=== PATIENT | female | born 1990 | race Caucasian/White ===

== ENCOUNTER 2017-08-28 00:30 | Outpatient (CLI) | payer BC ==
[2017-08-28 01:19] LABS: APPEARANCE,URINE SLIGHTLY-CLOUDY; BILIRUBIN,URINE NEGATIVE (NEGATIVE); GLUCOSE, URINE NEGATIVE (NEGATIVE); KETONES,URINE NEGATIVE (NEGATIVE); LEUKOCYTE ESTERASE,URINE NEGATIVE (NEGATIVE); NITRITE,URINE NEGATIVE (NEGATIVE); PROTEIN,URINE 30 mg/dL (NEGATIVE); URINE SPECIFIC GRAVITY 1.027
[2017-08-28 01:25] LABS: COLOR,URINE YELLOW
[2017-08-28 02:21] LABS: URINE AMPHETAMINES SCREEN NEGATIVE; URINE BARBITURATES SCREEN NEGATIVE; URINE BENZODIAZEPINES SCREEN NEGATIVE; URINE COCAINE SCREEN NEGATIVE; URINE MARIJUANA (THC) SCREEN NEGATIVE; URINE METHADONE SCREEN NEGATIVE; URINE PHENCYCLIDINE SCREEN NEGATIVE
--- NOTE | 2017-08-28 02:40 | Non Stress Test Report ---
Non Stress Test Datetime Report Generated by CPN: 08/28/2017 02:40 DEMOGRAPHIC EGA NST: 33.4 INDICATION Indication for Study: Ordered by Provider; Other Indication for Study (NST) Other: LC URINE RESULTS Urine Protein, NST: Positive Urine Ketones - NST: Negative Urine Glucose - NST: Negative Urine Blood - NST: Positive MONITORING Monitor Explained: Monitor Explained; Test Explained; Patient Verbalized Understanding Time on Monitor: 08/28/2017 01:10 Time off Monitor: 08/28/2017 02:10 NST Duration: 60 NST INTERVENTIONS NST Interventions: Reposition Patient BABY A: [id number] BABY A Movement : Present Contraction Frequency : none FHR Baseline : 140 Accelerations : 15X15 Decelerations : None Variability : Moderate 6-25bpm NST Review: Meets Criteria for Reactive NST NST Review and Verified By : lisa cain rn NST Results: Reactive NST REPORT Report Trigger: Send Report
== END 2017-08-28 02:22 | disposition home or self-care (01) ==
LOC: LC 00:30
PROVIDERS: ATTEND Obstetrics & Gynecology
PROC: 4A1HXCZ Monitoring of Products of Conception, Cardiac Rate, External Approach (ICD-10-PCS; principal; 2017-08-28)
DX: Z34.93 Encounter for supervision of normal pregnancy, unspecified, third trimester (principal)
CPT/HCPCS: 59025; 80307; 81005; 87086

== ENCOUNTER 2017-10-01 16:26 | Outpatient (CLI) | payer BC ==
--- NOTE | 2017-10-01 17:40 | Non Stress Test Report ---
Non Stress Test Datetime Report Generated by CPN: 10/01/2017 17:40 DEMOGRAPHIC EGA NST: 38.3 INDICATION Indication for Study: Decreased Movement VITAL SIGNS Temperature - NST: 98.2 RESP - NST: 16 MONITORING Monitor Explained: Monitor Explained; Test Explained Time on Monitor: 10/01/2017 16:28 Time off Monitor: 10/01/2017 17:38 NST Duration: 70 NST INTERVENTIONS NST Interventions: PO Hydration; Reposition Patient Physician Notified NST: Dr Francis BABY A: [id number] BABY A Movement : Present Contraction Frequency : irreg FHR Baseline : 130 Accelerations : 15X15 Decelerations : None Variability : Moderate 6-25bpm NST Review: Meets Criteria for Reactive NST NST Review and Verified By : Willa Roach [facility] NST Results: Reactive NST REPORT Report Trigger: Send Report
== END 2017-10-01 17:41 | disposition home or self-care (01) ==
LOC: LC 16:26
PROVIDERS: ATTEND Obstetrics & Gynecology
PROC: 4A1HXCZ Monitoring of Products of Conception, Cardiac Rate, External Approach (ICD-10-PCS; principal; 2017-10-01)
DX: O36.8130 Decreased fetal movements, third trimester, not applicable or unspecified (principal); Z3A.38 38 weeks gestation of pregnancy
CPT/HCPCS: 59025

== ENCOUNTER 2017-10-10 18:22 | Inpatient (IN) | payer BC ==
[2017-10-10 19:38] LABS: APPEARANCE,URINE CLOUDY; BILIRUBIN,URINE NEGATIVE (NEGATIVE); COLOR,URINE YELLOW; GLUCOSE, URINE 150 mg/dL (NEGATIVE); KETONES,URINE TRACE mg/dL (NEGATIVE); LEUKOCYTE ESTERASE,URINE TRACE (NEGATIVE); NITRITE,URINE NEGATIVE (NEGATIVE); PROTEIN,URINE 30 mg/dL (NEGATIVE); URINE SPECIFIC GRAVITY 1.027; UROBILINOGEN,URINE NEGATIVE mg/dL (<2.0)
[2017-10-10 19:55] LABS: URINE AMPHETAMINES SCREEN NEGATIVE; URINE BARBITURATES SCREEN NEGATIVE; URINE BENZODIAZEPINES SCREEN NEGATIVE; URINE COCAINE SCREEN NEGATIVE; URINE MARIJUANA (THC) SCREEN NEGATIVE; URINE METHADONE SCREEN NEGATIVE; URINE PHENCYCLIDINE SCREEN NEGATIVE
[2017-10-10] MEDS ORDERED: RINGERS SOLUTION,LACTATED 1,000 ML IV PRN (20:10)
[2017-10-10] MEDS ORDERED: RINGERS SOLUTION,LACTATED 1,000 ML IV ONE (20:10)
[2017-10-10 20:28] LABS: ABSOLUTE BASOPHILS # (AUTO) 0.1 10^3/uL (0.0-0.2); ABSOLUTE EOSINOPHILS # (AUTO) 0.1 10^3/uL (0.0-0.6); ABSOLUTE LYMPHOCYTES (AUTO) 2.9 10^3/uL (0.5-4.7); ABSOLUTE NEUT (AUTO) 9.8 10^3/uL (1.7-8.2); BASOPHILS % (AUTO) 0.4 % (0-2); EOSINOPHILS % (AUTO) 0.8 % (0-6); HEMATOCRIT 38.9 % (36.0-47.0); HEMOGLOBIN 13.4 g/dL (12.0-15.5); LYMPHOCYTES % (AUTO) 21.2 % (13-45); MEAN CORPUSCULAR HEMOGLOBIN 31.2 pg (27.0-33.4); MEAN CORPUSCULAR HGB CONC 34.4 g/dL (32.0-36.0); MEAN CORPUSCULAR VOLUME 91 fl (80-97); PLATELET COUNT 238 10^3/uL (150-450); RED BLOOD COUNT 4.29 10^6/uL (3.72-5.28); RED CELL DISTRIBUTION WIDTH 15.3 % (11.5-14.0); SEGMENTED NEUTROPHILS % (AUTO) 70.6 % (42-78); TOTAL CELLS COUNTED % (AUTO) 100 %; WHITE BLOOD COUNT 13.8 10^3/uL (4.0-10.5)
[2017-10-10] MEDS ORDERED: DINOPROSTONE 10 MG VAGINAL INSERT.SR ONE (21:27)
[2017-10-10] MEDS: DINOPROSTONE 10 MG VAGINAL INSERT.SR PV PRN (21:48)
--- NOTE | 2017-10-10 22:35 | Admission Physical ---
Datetime Report Generated by CPN: 10/10/2017 22:35 CURRENT ADMISSION Chief Complaint: Suspected Ruptured Membranes Indication for Induction: Not Applicable Admit Impression : Term, Intrauterine Admit Plan: Initiate Labor Protocol ALLERGIES Medication Allergies: No Medication Allergies: No Known Allergies (10/10/2017) Latex: No Latex Allergies OBSTETRICAL HISTORY EDC: 10/12/2017 00:00 : 2 Para: 0 Term: 0 : 0 SAB: 1 IAB: 0 Ectopic: 0 Livin Cesareans: 0 VBACs: 0 Multiple Births: 0 Gestational Diabetes: No Rh Sensitization: No Incompetent Cervix: No SEBASTIAN: No Infertility: No ART Treatment: No Uterine Anomaly: No IUGR: No Hx Previous C/S: No Macrosomia: No Hx Loss/Stillborn: No PIH: No Hx : No Placenta Previa/Abruption: No Depression/PP Depression: No PTL/PROM: No Post Hemorrhage: No Current Procedures: Ultrasound Obstetrical History Comments: G1: 2009 SAB unk gestational age G2: Current, placenta anterior per u/s SEE RECORDS Alcohol: No Marijuana : No Cocaine: No Other Illicit Drugs: No Cigarettes: Former Smoker. [id number] MEDICAL HISTORY Diabetes: No Blood Transfusion: No Pulmonary Disease (Asthma, TB): No Breast Disease: No Hypertension: No Pbx Manager Surgery: No Heart Disease: No Hosp/Surgery: No Autoimmune Disorder: No Anesthetic Complications: No Kidney Disease: Yes Abnormal Pap Smear: No Neuro/Epilepsy: No Psychiatric Disorders: Yes Other Medical Diseases: No Hepatitis/Liver Disease: No Significant Family History: No Varicosities/Phlebitis: No Trauma/Violence : No Thyroid Dysfunction: No Medical History Comments: tubal ovarian abcess 2016; UTI , ADD INFECTIOUS HISTORY Gonorrhea: No Genital Herpes: No Chlamydia: No Tuberculosis: No Syphilis: No Hepatitis: No HIV/AIDS Exposure: No Rash or Viral Illness: No HPV: No PHYSICAL EXAM General: Normal HEENT: Normal Neurologic: Normal Thyroid: Normal Heart: Normal Lungs: Normal Breast: Deferred Back: Normal Abdomen: Normal Genitourinary Exam: Normal Extremities: Normal DTRs: Normal Pelvic Type: Adequate FETUS A EGA: 39.5 Monitoring: External US PLANS FOR LABOR AND DELIVERY Labor and Delivery: None Pain Management: Epidural Feeding Preference: Breast Benefit of Breast Feed Discussed: Yes Circumcision: N/A INFORMED CONSENT Signature: with User ID: [email or web address]
[2017-10-11] MEDS: DINOPROSTONE 10 MG VAGINAL INSERT.SR PV PRN (07:23)
[2017-10-11] MEDS ORDERED: LIDOCAINE 1% INJ-PF (10 MG/ML) 30 ML SDV INJ PRN (07:59)
[2017-10-11] MEDS ORDERED: MISOPROSTOL 0.2 MG TABLET PR PRN (07:59)
[2017-10-11] MEDS ORDERED: OXYTOCIN/NORMAL SALINE 20 UNIT/1,000 ML RTUINJ IV PRN ×2 (07:59→12:13)
[2017-10-11] MEDS ORDERED: PROMETHAZINE HCL INJ 25 MG/1 ML VIAL ONE (10:20)
[2017-10-11] MEDS ORDERED: PROMETHAZINE HCL INJ 25 MG/1 ML VIAL IV PRN ×2 (10:20→12:13)
[2017-10-11] MEDS ORDERED: BUPIVACAINE HCL 0.25 % INJ/PF (2.5 MG/1 ML) 30 ML VIAL ONE (11:14)
[2017-10-11] MEDS ORDERED: EPHEDRINE SULFATE INJ 50 MG/1 ML AMPULE ONE (11:14)
[2017-10-11] MEDS ORDERED: FENTANYL/BUPIVACAINE/NS/PF 300 MCG/150 ML RTUINJ EPI ONE (11:14)
[2017-10-11] MEDS ORDERED: PSEUDOEPHEDRINE HCL 30 MG TABLET PO PRN (12:13)
[2017-10-11] MEDS ORDERED: PROMETHAZINE HCL 25 MG SUPP.RECT PR PRN (12:13)
[2017-10-11] MEDS ORDERED: NA PHOS,M-B/NA PHOS,DI-BA (ADULT) 133 ML ENEMA PR PRN (12:13)
[2017-10-11] MEDS ORDERED: DIPHENHYDRAMINE HCL 25 MG CAPSULE PO PRN (12:13)
[2017-10-11] MEDS ORDERED: DIPH/PERTUSS(ACELL)/TETANUS VAC/PF 0.5 ML SYR (>=10YO) IM PRN (12:13)
[2017-10-11] MEDS ORDERED: BENZOCAINE/MENTHOL AEROSOL SPRAY 56 ML TOP PRN (12:13)
[2017-10-11] MEDS ORDERED: GLYCERIN/WITCH HAZEL LEAF 1 EACH MED..PAD TP PRN (12:13)
[2017-10-11] MEDS ORDERED: MAGNESIUM HYDROXIDE SUSP 30 ML UDCUP PO PRN (12:13)
[2017-10-11] MEDS ORDERED: MEASLES,MUMPS&RUBELLA VACC/PF 0.5 ML VIAL SUBCUT PRN (12:13)
[2017-10-11] MEDS ORDERED: HYDROCODONE/ACETAMINOPHEN 5-325 MG TABLET PO PRN (12:13)
[2017-10-11] MEDS ORDERED: ACETAMINOPHEN WITH CODEINE #3 TABLET PO PRN (12:13)
[2017-10-11] MEDS ORDERED: ZOLPIDEM TARTRATE 5 MG TABLET PO PRN (12:13)
[2017-10-11] MEDS ORDERED: PROMETHAZINE HCL 25 MG TABLET PO PRN (12:13)
[2017-10-11] MEDS ORDERED: ACETAMINOPHEN 650 MG SUPP.RECT PR PRN (12:13)
[2017-10-11] MEDS ORDERED: LIDOCAINE 1% INJ-PF (10 MG/ML) 30 ML SDV ONE (12:15)
[2017-10-11] MEDS ORDERED: MISOPROSTOL 0.2 MG TABLET ONE (12:15)
[2017-10-11] MEDS ORDERED: OXYTOCIN/NORMAL SALINE 20 UNIT/1,000 ML RTUINJ ONE (12:15)
--- NOTE | 2017-10-11 13:36 | L&D Progress Notes ---
PROGRESS NOTES Datetime Report Generated by CPN: 10/11/2017 13:35 PROGRESS NOTE Impression: Normal Progression of Labor Informed Consent Obtained: Vaginal Delivery Comment: prolonged decelerations - placed on mehrdad maneuver with resuscitation, then placed back supine. pushed without difficulty. 2nd degree and bilateral periurethral tears. viable female . apgars 7 and 9. awaiting wait. skin to skin. SIGNATURE SIGNATURE: [id number];[id number];[id number] SIGNATURE: [id number];[id number] SIGNATURE: [id number] SIGNATURE: [id number] Signature: with User ID: [email or web address]
--- NOTE | 2017-10-11 13:41 | PDOC DELIVERY SUMMARY ---
Delivery Summary - Maternal Hx : II Hx Para: 0 Hx # Term Pregnancies: 0 Hx # Pregnancies: 0 Hx Total # of Abortions (Sponateous & Elective): 1 Number of Living Children: 0 FRANKIE: 10/12/17 Gestational Age: 39.6 Risk Factors: Premature Rupture Membrane, Other - PREMATURE RUPTURE OF MEMBRANES 10/10/17 Risk Factors/Complications Other:: NONE Ruptured Membranes: SROM Time of Rupture: 16:30 - 10/10/17 Fluids: Clear Fluid Description: CLEAR NORMAL APPEARING FLUID - Delivery Labor: Induction Presentation: Vertex Heart Rate Monitoring: Externally Uterine Contraction Monitoring: External Pattern: Prolonged Decels - PROLONGED DECELERATION LASTING ABOUT 5-6 MINUTES, VARIABLE DECELERATIONS DEEP TO 60S AT TIME OF FULL DILATION AND PUSHING. PLACED IN MALIK MANEUVER - RESUSCITATED AND THEN PLACED BACK IN SUPINE POSITIONING, Variable Decels Support Person Present: Yes Location: LD Placenta: Within Normal Limits Placenta Description: TRUE KNOT X 1 NOTED Number of Vessels (Cord): 3 Nuchal Cord: No Delivery of Placenta Date: 10/11/17 Delivery of Placenta Time: 13:22 Estimated Blood Loss: SEE NURSING NOTE - PENDING AT THIS TIME - Medications Type of Anesthesia:: Epidural - Delivery Medications Delivery Meds: Other-Document - PITOCIN AFTER PLACENTA - Infant Assess and Care Baby 1 Female Delivery of Infant Date: 10/11/17 Delivery of Infant Time: 13:19 at 1 minute: 7 at 5 minutes: 9 Skin to Skin: Yes Skin to Skin (Mins): 1 - SEE NURSING NOTES
[2017-10-11 13:57] LABS: ARTERIAL BLOOD BASE EXCESS -13.2 mmol/L; ARTERIAL BLOOD H2CO3 2.94 mmol/L (1.05-1.35)
[2017-10-11 14:00] LABS: ARTERIAL BLOOD PCO2 97.8 mmHg (35-45); ARTERIAL BLOOD PH 6.97 (7.35-7.45)
[2017-10-11] MEDS: IBUPROFEN 800 MG TABLET PO SCH ×2 (14:00→21:57)
[2017-10-11 14:01] LABS: ARTERIAL BLOOD PO2 17.8 mmHg (80-100)
--- NOTE | 2017-10-11 14:33 | Delivery Summary ---
Del Sum A-C Datetime Report Generated by CPN: 10/11/2017 14:33 DELIVERY PERSONNEL DELIVERY PERSONNEL: [id number] Delivery Doctor:: Elizabeth Lopez MD Labor and Delivery Nurse:: Lorena Alcantara RNequipment maintenance technician Nurse:: Taylor Froylan, RN Training Engineer/RESIDENTIAL RECYCLE DRIVER: Velma Madrigal, ST MATERNAL INFORMATION Delivery Anesthesia: Epidural Medications After Delivery: Pitocin Bolus-Please Comment Maternal Complications: Premature Rupture of Membranes LABOR SUMMARY EDC: 10/12/2017 00:00 No. Babies in Womb: 1 Attempted: No Labor Anesthesia: Epidural LABOR INFORMATION Reason for Induction: Premature Rupture of Membranes Onset of Labor: 10/11/2017 03:10 Complete Dilatation: 10/11/2017 12:11 Cervical Ripening Agents: Cervidil Oxytocin: Induction Group B Beta Strep: Negative Antibiotics # of Doses: N/A Antibiotics Time of Last Dose: N/A Steroids Given: None Reason Steroids Not Administered: Not Applicable MEMBRANES Membranes Rupture Method: Spontaneous Rupture of Membranes: 10/10/2017 16:30 Length of Rupture (hr): 20.82 Amniotic Fluid Color: Clear Amniotic Fluid Amount: Small Amniotic Fluid Odor: Normal STAGES OF LABOR Stage 1 hr: 9 Stage 1 min: 1 Stage 2 hr: 1 Stage 2 min: 8 Stage 3 hr: 0 Stage 3 min: 3 Total Time in Labor hr: 10 Total Time in Labor min: 12 VAGINAL DELIVERY Episiotomy: None Laceration #1: Periurethral Laceration Extension #1: First Degree Laceration #2: Perineal Laceration Extension #2: Second Degree Laceration #3: None Laceration Repair: Yes Laceration Repair Note: hemostatic bilateral periurethral tears - no repair performed 2nd degree perineal tear- 3-[address]-1 continous stitch Sponge Count Correct: Yes; Vaginal Sweep Performed Sharps Count Correct: Yes CSECTION DELIVERY Primary Indication: N/A Secondary Indication: N/A CSection Urgency: N/A CSection Incidence: N/A Labor: N/A Elective: N/A CSection Incision: N/A BABY A INFORMATION Delivery Date/Time: 10/11/2017 13:19 Method of Delivery: Vaginal Born in Route : No : N/A Forceps: N/A Vacuum Extraction: N/A Shoulder Dystocia : No PRESENTATION/POSITION BABY A Presentation: Cephalic Cephalic Presentation: Vertex Vertex Position: Right Occipital Anterior Breech Presentation: N/A PLACENTA INFORMATION BABY A Placenta Delivery Time : 10/11/2017 13:22 Placenta Method of Delivery: Spontaneous Placenta Status: Delivered SCORES BABY A Heart Rate 1 min: >100 bpm Resp Effort 1 min: Good Cry Reflex Irritability 1 min: Cough or Sneeze or Pulls Away Muscle Tone 1 min: Flaccid Color 1 min: Body Wal[place], Extremities Blue Resuscitation Effort 1 min: Tactile Stimulation SCORE 1 MIN: 7 Heart Rate 5 min: >100 bpm Resp Effort 5 min: Good Cry Reflex Irritability 5 min: Cough or Sneeze or Pulls Away Muscle Tone 5 min: Active Motion Color 5 min: Body Walnut, Extremities Blue Resuscitation Effort 5 min: Tactile Stimulation SCORE 5 MIN: 9 INFORMATION BABY A Gestational Age at Delivery: 39.6 Gestational Status: Full Term- 39- 40.6 Weeks Infant Outcome : Liveborn Condition : Stable Sex: Female IDENTIFICATION BABY A Verification Date/Time: 10/11/2017 13:46 ID Band Number: [id number] Mother's Name Verified: Yes RN Verifying Infant: Cassandra Galeano RN Additional Verifying Personnel: Josh Jung RN WEIGHT/LENGTH BABY A Infant Birthweight (gm): 3030 Infant Weight (lb): 6 Weight (oz): 11 Infant Length (in): 20.50 Infant Length (cm): 52.07 CORD INFORMATION BABY A No. Cord Vessels: 3 Nuchal Cord : N/A True Knot: 1 Cord Blood Taken: Yes-For Eval (Mom's Blood Type - or O+) Infant Suction: None ASSESSMENT BABY A Complications: Multiple Variable Decels Physical Findings at Delivery: Within Normal Limits; Molding of the Head Respirations: Appears Normal Skin to Skin: Yes Skin to Skin Time (min): 60 Satellite Specialist/ALS Called : No Infant Care By: A. Froylan RN BABY B INFORMATION : N/A SIGNATURES Signature: Electronically signed by Elizabeth Lopez MD ([facility] [place]) on 10/11/2017 at 13:36 with User ID: [email or web address]
[2017-10-11] MEDS: FERROUS SULFATE 325 MG TABLET PO SCH (17:10)
[2017-10-11] MEDS: DOCUSATE SODIUM 100 MG CAPSULE PO SCH (17:10)
[2017-10-11] MEDS: ACETAMINOPHEN WITH CODEINE #3 TABLET PO PRN (18:42)
[2017-10-11] MEDS: DIBUCAINE 1% OINTMENT 28 GM TP PRN (18:43)
[2017-10-11] MEDS: FAMOTIDINE 20 MG TABLET PO SCH (21:56)
[2017-10-12] MEDS: IBUPROFEN 800 MG TABLET PO SCH ×3 (05:00→21:21)
[2017-10-12 07:12] LABS: HEMATOCRIT 31.7 % (36.0-47.0); MEAN CORPUSCULAR HEMOGLOBIN 31.4 pg (27.0-33.4); MEAN CORPUSCULAR HGB CONC 34.4 g/dL (32.0-36.0); MEAN CORPUSCULAR VOLUME 91 fl (80-97); PLATELET COUNT 176 10^3/uL (150-450); RED BLOOD COUNT 3.47 10^6/uL (3.72-5.28); RED CELL DISTRIBUTION WIDTH 15.2 % (11.5-14.0); WHITE BLOOD COUNT 13.5 10^3/uL (4.0-10.5)
[2017-10-12 07:22] LABS: HEMOGLOBIN 10.9 g/dL (12.0-15.5)
[2017-10-12] MEDS ORDERED: (PENDING PHARMACY ID) (Prenatal Vit/Iron Fum/Folic Ac [Prenatal Tablet] 1 TAB) PO SCH (10:00)
[2017-10-12] MEDS: PRENATAL VITAMIN W DHA CAPSULE PO SCH (10:17)
[2017-10-12] MEDS: SENNOSIDES/DOCUSATE 8.6-50 MG 1 EACH TABLET PO SCH (10:17)
[2017-10-12] MEDS: DOCUSATE SODIUM 100 MG CAPSULE PO SCH ×2 (10:18→17:31)
[2017-10-12] MEDS: FAMOTIDINE 20 MG TABLET PO SCH ×2 (10:18→21:21)
[2017-10-12] MEDS: FERROUS SULFATE 325 MG TABLET PO SCH ×2 (10:18→17:31)
--- NOTE | 2017-10-12 11:07 | PDOC PROGRESS REPORT ---
Subjective-OB Progress Note for:: 10/12/17 Subjective: Pt doing well, no concern. She reports light bleeding, reg diet and voiding without difficulty. Physical Exam (OB) Vital Signs: Temp Pulse Resp BP Pulse Ox 98.9 F 100 18 139/77 H 97 10/11/17 20:03 10/11/17 20:03 10/11/17 20:03 10/11/17 20:03 10/11/17 20:03 Intake & Output 10/11/17 10/12/17 10/13/17 06:59 06:59 06:59 Weight 120.5 kg - Lochia Lochia Amount: Small 10-25 ml Lochia Color: Rubra/Red - Abdomen Description: Tender, Soft, Round Hernia Present: No Fundal Description: Firm, Midline Fundal Height: u/u - u/2 Objective-Diagnostic Laboratory: 10/12/17 06:57 10/11/17 10/12/17 13:20 06:57 WBC 13.5 H RBC 3.47 L Hgb 10.9 L D Hct 31.7 L MCV 91 MCH 31.4 MCHC 34.4 RDW 15.2 H Plt Count 176 Carbonic Acid 2.94 H HCO3/H2CO3 Ratio 7:1 ABG pH 6.97 L* ABG pCO2 97.8 H* ABG pO2 17.8 L* ABG HCO3 22.0 ABG O2 Saturation Not Reportable ABG Base Excess -13.2 FiO2 Not Reportable Assessment and Plan(PN) - Assessment and Plan (1) Vaginal delivery Is this a current diagnosis for this admission?: Yes (2) PROM (premature rupture of membranes) Qualifiers: PROM onset of labor timing: onset of labor within 24 hours of rupture PROM gestational age: full term Qualified Code(s): O42.02 - Full-term premature rupture of membranes, onset of labor within 24 hours of rupture Is this a current diagnosis for this admission?: Yes - Time Spent with Patient Time with patient: Less than 15 minutes Medications reviewed and adjusted accordingly: Yes - Disposition Anticipated Discharge: Home Within: within 24 hours
[2017-10-12] MEDS: ACETAMINOPHEN WITH CODEINE #3 TABLET PO PRN (23:03)
[2017-10-13] MEDS: IBUPROFEN 800 MG TABLET PO SCH (05:52)
[2017-10-13] MEDS: DIBUCAINE 1% OINTMENT 28 GM TP PRN (07:51)
[2017-10-13] MEDS: FAMOTIDINE 20 MG TABLET PO SCH (07:52)
[2017-10-13] MEDS: SENNOSIDES/DOCUSATE 8.6-50 MG 1 EACH TABLET PO SCH (07:52)
[2017-10-13] MEDS: DOCUSATE SODIUM 100 MG CAPSULE PO SCH (07:53)
[2017-10-13] MEDS: PRENATAL VITAMIN W DHA CAPSULE PO SCH (07:53)
[2017-10-13] MEDS: FERROUS SULFATE 325 MG TABLET PO SCH (07:53)
[2017-10-13 08:43] VITALS: BP 132/83
[2017-10-13] MEDS ORDERED: SIMETHICONE 80 MG TAB.CHEW PO ONE (09:34)
--- NOTE | 2017-10-13 09:36 | PDOC PROGRESS REPORT ---
Subjective-OB Progress Note for:: 10/13/17 Subjective: Doing well, in bed with baby, hsb at bs, c/o of gas, eating well, Physical Exam (OB) Vital Signs: Temp Pulse Resp BP Pulse Ox 98.1 F 76 16 132/83 H 99 10/13/17 07:35 10/13/17 07:35 10/13/17 07:35 10/13/17 07:35 10/13/17 07:35 - PIH/Pre-Eclampsia Clonus: Negative Headache: Absent Epigastric Pain: No Visual Changes: No - Lochia Lochia Amount: Scant < 10 ml Lochia Color: Rubra/Red - Abdomen Description: Soft, Round Hernia Present: No Fundal Description: Firm, Midline Fundal Height: u/u - u/2 Objective-Diagnostic Laboratory: 10/12/17 06:57 Assessment and Plan(PN) - Assessment and Plan (1) PROM (premature rupture of membranes) Qualifiers: PROM onset of labor timing: onset of labor within 24 hours of rupture PROM gestational age: full term Qualified Code(s): O42.02 - Full-term premature rupture of membranes, onset of labor within 24 hours of rupture Is this a current diagnosis for this admission?: Yes (2) Vaginal delivery Is this a current diagnosis for this admission?: Yes - Time Spent with Patient Time with patient: Less than 15 minutes Medications reviewed and adjusted accordingly: Yes - Disposition Anticipated Discharge: Home Within: Other - home today
--- NOTE | 2017-10-13 09:40 | PDOC DISCHARGE SUMMARY ---
Final Diagnosis Discharge Date: 10/13/17 - Final Diagnosis (1) PROM (premature rupture of membranes) Is this a current diagnosis for this admission?: Yes (2) Vaginal delivery Is this a current diagnosis for this admission?: Yes Discharge Data - Discharge Medication Home Medications: Vit/Iron Fum/Folic AC [ Tablet] 1 tab PO DAILY 08/28/17 Reason(s) for Admission: PROM Procedures: NST, Ultrasound Procedure(s) Note: Cervidil Intrapartum Procedure(s): Spontaneous Vaginal Delivery Complication(s): Laceration-Perineal, Laceration-Periurethral Laceration-Degree: 1st - Data Baby 1 Female at 1 minute: 7 at 5 minutes: 9 Weight: 3.033 kg Home with Mother: Yes Complications: No - Diagnosis Test Laboratory: Temp Pulse Resp BP Pulse Ox 98.1 F 76 16 132/83 H 99 10/13/17 07:35 10/13/17 07:35 10/13/17 07:35 10/13/17 07:35 10/13/17 07:35 10/10/17 10/10/17 10/12/17 18:24 20:12 06:57 RBC 4.29 3.47 L Hgb 13.4 10.9 L D Hct 38.9 31.7 L Urine Opiates Screen NEGATIVE - Discharge information/Instructions Discharge Activity: Balance Activity w/Rest, Pelvic Rest Discharge Diet: As Tolerated, Regular Disposition: HOME, SELF-CARE Follow up with: [facility] in: 4, Weeks
== END 2017-10-13 12:23 | disposition home or self-care (01) | DRG 775 ==
LOC: LC 18:22 → LR 20:08 → 2S 10-11 15:45
PROVIDERS: ADMIT Obstetrics & Gynecology; ATTEND Obstetrics & Gynecology
PROC: 10E0XZZ Delivery of Products of Conception, External Approach (ICD-10-PCS; principal; 2017-10-11)
PROC: 0KQM0ZZ Repair Perineum Muscle, Open Approach (ICD-10-PCS; 2017-10-11)
DX: O42.02 Full-term premature rupture of membranes, onset of labor within 24 hours of rupture (principal); O43.893 Other placental disorders, third trimester; O76 Abnormality in fetal heart rate and rhythm complicating labor and delivery; O71.82 Other specified trauma to perineum and vulva; O70.1 Second degree perineal laceration during delivery; Z37.0 Single live birth; Z3A.39 39 weeks gestation of pregnancy
CPT/HCPCS: 36415; 80307; 81005; 82803; 85025; 85027; 86592; 86850; 86900; 86901; J2550; J2590; J3010; J3490; Q0114

== ENCOUNTER → 2018-10-22 | Outpatient (CLI) | payer BC ==
--- NOTE | 2018-10-22 10:43 | WOMENS IMAGING REPORT ---
EXAM DESCRIPTION: BILAT DIAGNOSTIC MAMMO W/CAD COMPLETED DATE/TIME: 10/22/2018 10:28 am REASON FOR STUDY: Z80.3 FAMILY HISTORY OF MALIGNANT NEOPLASM OF BREAST Z15.01 GENETIC SUSCEPTIBILIT Y TO MALIGNANT NEOPLASM OF BREAS COMPARISON: None. EXAM PARAMETERS: Standard craniocaudal and mediolateral oblique views of each breast recorded using digital acquisition. Additional true lateral views of both breasts acquired. Read with the assistance of CAD: .[facility] - [place] [facility] [employer] Mechanic Motor Version 9.2 LIMITATIONS: None. FINDINGS: RIGHT BREAST MASSES: No suspicious masses. CALCIFICATIONS: No new or suspicious calcifications. ARCHITECTURAL DISTORTION: None. DEVELOPING DENSITY: None. ASYMMETRY: None noted. OTHER: No other significant findings. LEFT BREAST MASSES: No suspicious masses. CALCIFICATIONS: No new or suspicious calcifications. ARCHITECTURAL DISTORTION: None. DEVELOPING DENSITY: None. ASYMMETRY: None noted. OTHER: No other significant finding. IMPRESSION: Unremarkable bilateral mammogram. No worrisome findings. BREAST DENSITY: b. There are scattered areas of fibroglandular density. BIRAD: ASSESSMENT: 1 Negative. RECOMMENDATION: RECOMMENDED FOLLOW UP: Follow-up as clinically indicated. SPECIFIC INTERVENTION/IMAGING/CONSULTATION RECOMMENDED:No additional intervention/ imaging/consultati on needed at this time. COMMUNICATION:The imaging findings were not discussed with the patient. Her referring provider has be en notified of the findings. COMMENT: The patient has been notified of the results by letter per SA requirements. Additional no tification policies are in place for contacting patient with suspicious or incomplete findings. Quality ID #[id number]: The [employer] recommends an annual screening mammogram for women aged 40 years or over. This facility utilizes a reminder system to ensure that all patients receive reminder letters, and/or direct phone calls for appointments. This includes reminders for routine scr eening mammograms, diagnostic mammograms, or other Breast Imaging Interventions when appropriate. Th is patient will be placed in the appropriate reminder system. TECHNICAL DOCUMENTATION: FINDING NUMBER: (1) ASSESSMENT: (1) JOB ID: [id number] [employer]- All Rights Reserved Reading location - IP/workstation name: [email or web address] JATRI[facility] MED[facility] CENTEREkaterina
== END ==
LOC: WI 09:43
PROVIDERS: ATTEND Internal Medicine Hematology & Oncology
DX: Z12.31 Encounter for screening mammogram for malignant neoplasm of breast (principal); Z15.01 Genetic susceptibility to malignant neoplasm of breast; Z80.3 Family history of malignant neoplasm of breast
CPT/HCPCS: 77066

== ENCOUNTER → 2019-04-28 | Outpatient (CLI) | payer BC, MEDICAID ==
--- NOTE | 2019-04-28 16:24 | RADIOLOGY REPORT (SQ) ---
EXAM DESCRIPTION: U/S NON-OB PELVIS TV W/O DOP COMPLETED DATE/TIME: 04/28/2019 8:29 am REASON FOR STUDY: ENCTR FOR SCREENING FOR MALIGNANT NEOPLASM OF OVARY (Z12.73) Z15.01 GENETIC SUSCE PTIBILITY TO MALIGNANT NEOPLASM OF BREAS Z12.73 ENCOUNTER FOR SCREENING FOR MALIGNANT NEOPLASM OF OV A COMPARISON: None. TECHNIQUE: Dynamic and static grayscale images acquired of the pelvis via transvaginal approach and recorded on PACS. Additional selected color Doppler and spectral images recorded. LIMITATIONS: None. FINDINGS: UTERUS: Contour normal. No mass. ENDOMETRIAL STRIPE: No focal or generalized thickening. No masses. CERVIX: No nabothian cysts. RIGHT OVARY AND DOPPLER: Normal size. No worrisome masses. Normal arterial vascular flow without evid ence for torsion. LEFT OVARY AND DOPPLER: 2 complex cystic lesion. Largest is 1.9 x 2.2 x 0.9 cm. Other is 1.7 x 1.6 x 1.3 cm. Likely hemorrhagic cyst. FREE FLUID: Trace OTHER: No other significant finding. MEASUREMENTS: UTERUS: 8.5 cm. ENDOMETRIAL STRIPE: 3.3 mm. RIGHT OVARY: And 2.4 cm. LEFT OVARY: 2.7 cm. IMPRESSION: Likely left ovarian hemorrhagic cysts less than 2.5 cm. No other significant finding. COMMENT: Followup of asymptomatic benign ovarian cysts detected by ultrasound in PREMENOPAUSAL grabiel ents Simple cyst: *Hemorrhagic cyst *? 5 cm: no followup *> 5 cm: 6-12 week followup ultrasound to ensure resolution Note: If cyst is clinically symptomatic or otherwise concerning, other followup may be warranted. Based on recommendations of the Society for Radiologists in Ultrasound Consensus Conference Statement 2010 on management of asymptomatic ovarian and other adnexal cysts imaged at ultrasound. TECHNICAL DOCUMENTATION: JOB ID: [id number] [employer]- All Rights Reserved Rev-08/15 Reading location - IP/workstation name: [email or web address]
== END ==
LOC: RAD 08:00
PROVIDERS: ATTEND Internal Medicine Hematology & Oncology
DX: Z12.73 Encounter for screening for malignant neoplasm of ovary (principal); Z15.01 Genetic susceptibility to malignant neoplasm of breast; N83.202 Unspecified ovarian cyst, left side
CPT/HCPCS: 76830

== ENCOUNTER → 2019-06-04 | Outpatient (CLI) | payer BC ==
--- NOTE | 2019-06-06 14:42 | RADIOLOGY REPORT (SQ) ---
EXAM DESCRIPTION: MRI BREAST BILATERAL W/WO COMPLETED DATE/TIME: 06/04/2019 5:55 pm REASON FOR STUDY: Z15.01 GENETIC SUSCEPTIBILITY TO MALIGNANT NEOPLASM OF BREAST Z15.01 GENETIC SUSC EPTIBILITY TO MALIGNANT NEOPLASM OF BREAS COMPARISON: Mammography September 2018 PATHOLOGIC CORRELATION: None. CONTRAST TYPE AND DOSE: 20 mL Dotarem. RENAL FUNCTION: None required. The patient is less than 50 years old. TECHNIQUE: MR imaging performed with a dedicated breast coil. Pre contrast T1 and T2 weighted images . Pre contrast and post contrast enhanced T1 weighted images with fat saturation. Subtraction images, 3D thick and thin MIPS, and kinetic analysis performed on an independent workstat ion. (Localize Direct workstation) Magnet strength: 1.5 T LIMITATIONS: None. FINDINGS: BREAST DENSITY: b. There are scattered areas of fibroglandular density. BACKGROUND PARENCHYMAL ENHANCEMENT:Minimal. RIGHT BREAST: No enhancing or suspicious masses. No clumped, regional/segmental ductal enhancement. CHEST WALL: Normal tissue planes. No abnormal internal mammary nodes. AXILLA: Normal axillary and retro-pectoral nodes. LEFT BREAST:No enhancing or suspicious masses. No clumped, regional/segmental ductal enhancement. CHEST WALL: Normal tissue planes. No abnormal internal mammary nodes. AXILLA: Normal axillary and retro-pectoral nodes. OTHER:No identified liver, bone, or lung lesions. No other significant incidental findings. IMPRESSION: NORMAL MR OF THE BREASTS. BIRAD: RIGHT BREAST: 1 Negative. LEFT BREAST: 1 Negative. RECOMMENDATION: RECOMMENDED FOLLOW-UP: High risk screening protocol. TECHNICAL DOCUMENTATION: JOB ID: [id number] 2010 [employer]- All Rights Reserved Reading location - IP/workstation name: [email or web address]
== END ==
LOC: RAD 15:48
PROVIDERS: ATTEND Internal Medicine Hematology & Oncology
DX: Z15.01 Genetic susceptibility to malignant neoplasm of breast (principal)
CPT/HCPCS: 77049; A9576

== ENCOUNTER 2019-12-02 18:35 | Observation (INO) | payer BC, MEDICAID ==
--- NOTE | 2019-12-02 19:35 | ER Document Report ---
ED Medical Screen (RME) - General Chief Complaint: Vaginal Bleeding Stated Complaint: VAGINAL BLEEDING Time Seen by Provider: 12/02/19 19:31 Primary Care Provider: ALVIN GALEANO MD [Primary Care Provider] - Follow up as needed Mode of Arrival: Ambulatory Information source: Patient Notes: 29-year-old female presented to ED for active bleeding multiple pads an hour while waiting in the emergency room she soaked all of her clothes and is been through multiple pads while she has been here. She states she is still heavily bleeding. She states she is passing a lot of tissue and clots. She said she was scheduled a D&C for tomorrow but that the bleeding got so bad that she called the EAR SPECIALIST they told to come straight to the emergency room right away. They states she was going to tell the on-call EAR SPECIALIST was happening and be planning for a D&C tonight. She stated she had already started dilating and that the EAR SPECIALIST told her that she was miscarrying. I have greeted and performed a rapid initial assessment of this patient. A comprehensive ED assessment and evaluation of the patient, analysis of test results and completion of medical decision making process will be conducted by an additional ED providers. TRAVEL OUTSIDE OF THE [place] IN LAST 30 DAYS: No - Related Data Allergies/Adverse Reactions: No Known Allergies Allergy (Verified 10/10/17 19:56) Past Medical History - Immunizations Hx Diphtheria, Pertussis, Tetanus Vaccination: - unknown Physical Exam - Vital signs Vitals: Temp Pulse Resp BP Pulse Ox 99.0 F 101 H 16 139/87 H 99 12/02/19 18:39 12/02/19 18:39 12/02/19 18:39 12/02/19 18:39 12/02/19 18:39 Course - Vital Signs Vital signs: Temp Pulse Resp BP Pulse Ox 99.0 F 101 H 16 139/87 H 99 12/02/19 18:39 12/02/19 18:39 12/02/19 18:39 12/02/19 18:39 12/02/19 18:39 Doctor's Discharge - Discharge Referrals: ALVIN GALEANO MD [Primary Care Provider] - Follow up as needed
[2019-12-02] MEDS ORDERED: NORMAL SALINE 1000 ML 1,000 ML IV ONE (19:36)
[2019-12-02 20:33] LABS: ABSOLUTE EOSINOPHILS # (AUTO) 0.1 10^3/uL (0.0-0.6); ABSOLUTE LYMPHOCYTES (AUTO) 2.9 10^3/uL (0.5-4.7); ABSOLUTE MONOCYTES (AUTO) 0.8 10^3/uL (0.1-1.4); BASOPHILS % (AUTO) 0.2 % (0-2); EOSINOPHILS % (AUTO) 1.2 % (0-6); HEMATOCRIT 40.9 % (36.0-47.0); MEAN CORPUSCULAR HEMOGLOBIN 31.6 pg (27.0-33.4); MEAN CORPUSCULAR HGB CONC 34.1 g/dL (32.0-36.0); MEAN CORPUSCULAR VOLUME 93 fl (80-97); MONOCYTES % (AUTO) 6.9 % (3-13); PLATELET COUNT 260 10^3/uL (150-450); RED BLOOD COUNT 4.43 10^6/uL (3.72-5.28); RED CELL DISTRIBUTION WIDTH 13.4 % (11.5-14.0); SEGMENTED NEUTROPHILS % (AUTO) 64.7 % (42-78); TOTAL CELLS COUNTED % (AUTO) 100 %; WHITE BLOOD COUNT 10.8 10^3/uL (4.0-10.5)
[2019-12-02 20:46] LABS: ALBUMIN 4.3 g/dL (3.5-5.0); ALKALINE PHOSPHATASE 59 U/L (38-126); ANION GAP 7 (5-19); ASPARTATE AMINO TRANSFERASE 20 U/L (14-36); BILIRUBIN,DIRECT 0.3 mg/dL (0.0-0.4); BILIRUBIN,TOTAL 0.5 mg/dL (0.2-1.3); BLOOD UREA NITROGEN 7 mg/dL (7-20); CALCIUM 9.7 mg/dL (8.4-10.2); CARBON DIOXIDE 25 mmol/L (22-30); CHLORIDE 107 mmol/L (98-107); GLUCOSE 97 mg/dL (75-110); POTASSIUM 4.4 mmol/L (3.6-5.0); TOTAL PROTEIN 7.5 g/dL (6.3-8.2)
--- NOTE | 2019-12-02 21:30 | ER Document Report ---
ED General - General Chief Complaint: Abdominal Cramping Stated Complaint: VAGINAL BLEEDING Time Seen by Provider: 12/02/19 19:31 Primary Care Provider: ALVIN GALEANO MD [ACTIVE STAFF] - Follow up as needed Mode of Arrival: Ambulatory TRAVEL OUTSIDE OF THE [place] IN LAST 30 DAYS: No - HPI Patient complains to provider of: vaginal bleeding Onset: Other - 3 hours ago Onset/Duration: Gradual Quality of pain: Sharp Severity: Moderate Associated symptoms: None Exacerbated by: Other - Nothing Relieved by: Other - Nothing Similar symptoms previously: Yes Recently seen / treated by doctor: Yes Notes: This is a 29-year-old female, G3, P1 aborta 1 presenting to the emergency department at the direction of her ASSISTANT PROFESSOR OF FORESTRY. Patient has been diagnosed with a missed and was scheduled to have a elective D&C done later this month. Patient states she was instructed to contact her ASSISTANT PROFESSOR [employer] if she started having suprapubic pain and/or vaginal bleeding. Patient states she started having suprapubic pain, cramping and vaginal bleeding that started about 1800 hrs. today. Patient spoke to her ASSISTANT PROFESSOR OF [employer]ESTRY, Dr. Amador. Dr. Amador said for the patient to come to the emergency department and get admitted for a D&C. Patient denies associated COVID symptoms such as loss of smell, loss of taste, cough, fever, chills, respiratory difficulty. Patient states she was supposed to have a rapid COVID done today and be scheduled for a D&C today as well. Nothing exacerbates the patient's symptoms. Nothing seems to improve the patient's symptoms. - Related Data Allergies/Adverse Reactions: No Known Allergies Allergy (Verified 10/10/17 19:56) Past Medical History - General Information source: Patient - Social History Smoking Status: Never Smoker Chew tobacco use (# tins/day): No Frequency of alcohol use: None Drug Abuse: None Family History: Reviewed & Not Pertinent Renal/ Medical History: Reports: Other - Miscarriage - Immunizations Hx Diphtheria, Pertussis, Tetanus Vaccination: - unknown Review of Systems - Review of Systems Constitutional: No symptoms reported EENT: No symptoms reported Cardiovascular: No symptoms reported Respiratory: No symptoms reported Gastrointestinal: No symptoms reported Genitourinary: See HPI, Other - Suprapubic/pelvic pain Female Genitourinary: No symptoms reported Musculoskeletal: No symptoms reported Skin: No symptoms reported Hematologic/Lymphatic: No symptoms reported Neurological/Psychological: No symptoms reported -: Yes All other systems reviewed and negative Physical Exam - Vital signs Vitals: Temp Pulse Resp BP Pulse Ox 99.0 F 101 H 16 139/87 H 99 12/02/19 18:39 12/02/19 18:39 12/02/19 18:39 12/02/19 18:39 12/02/19 18:39 - Notes Notes: CONSTITUTIONAL [Vital signs reviewed, Patient appears comfortable, Alert and oriented X 3, Normal stature.] HEAD [Atraumatic, Normocephalic.] EYES [Eyes are normal to inspection, No discharge from eyes, Extraocular muscles intact, Sclera are normal, Conjunctiva are normal.] NECK [Normal ROM, No jugular venous distention, No meningeal signs, no carotid bruit.] RESPIRATORY CHEST [Chest is nontender, Breath sounds normal, No respiratory distress.] CARDIOVASCULAR [RRR, No murmurs, Normal S1 S2, No rub, No gallop.] ABDOMEN [Abdomen is nontender, No pulsatile masses, No other masses, Bowel sounds normal, No distension, No peritoneal signs, No hernias.] Pelvic exam: Normal external genitalia. Pelvic exam is significant for a small amount of dark blood in the vaginal vault. There is a large amount of redundant tissue that makes visualizing the cervix and cervical os with the speculum not possible. BACK [There is no CVA Tenderness, There is no tenderness to palpation, Normal inspection.] UPPER EXTREMITY [Inspection normal, No cyanosis, No clubbing, No edema, 2+ radial pulses.] LOWER EXTREMITY [Inspection normal, No cyanosis, No clubbing, No edema, No calf tenderness, 2+ femoral pulses.] NEURO [No focal motor deficits, No focal sensory deficits, Speech normal.] SKIN [Skin is warm, Skin is dry, Skin is normal color.] LYMPHATIC [No adenopathy in neck.] PSYCHIATRIC [Normal affect. ] Course - Re-evaluation Re-evalutation: 12/03/19 05:33 Results of ED MSE were discussed with patient. - Vital Signs Vital signs: Temp Pulse Resp BP Pulse Ox 99.0 F 101 H 16 139/87 H 99 12/02/19 18:39 12/02/19 18:39 12/02/19 18:39 12/02/19 18:39 12/02/19 18:39 - Laboratory Result Diagrams: 12/02/19 20:05 12/02/19 20:05 Laboratory results interpreted by me: 12/02/19 20:05 WBC 10.8 H - Consults Dr. Fausto Palomo Time consulted: 03:00 - agreed to admit pt Reason for consultation: 12/03/19 05:34 incomplete Discharge - Discharge Clinical Impression: Miscarriage Condition: Stable Disposition: ADMITTED OBSERVATION Admitting Provider: [facility] - dr. fausto palomo Unit Admitted: Post Referrals: ALVIN GALEANO MD [ACTIVE STAFF] - Follow up as needed
[2019-12-02] MEDS ORDERED: MORPHINE SULFATE 10 MG/ML INJ IV ONE (21:43)
[2019-12-02] MEDS ORDERED: ONDANSETRON HCL INJ/PF 4 MG/2 ML SDV IV ONE (21:43)
--- NOTE | 2019-12-03 07:34 | PDOC H&P ---
History of Present Illness Admission Date/PCP: 12/03/19 06:47 ALEJO FLORES PA-C History of Present Illness: JOCELYNE PETE is a 29 year old female with a first trimester missed AB- document gestational age 11 to 13 weeks. Patient came to the ER this evening because she had cramping and began having vaginal bleeding. Patient reports seeing " a few clots" but nothing large. She does say that there were 2 gushes of blood but she cannot quantify how many pads she changed during this period of time. Abdominal pain is cramping in the lower abdomen radiates toward the pelvis and has associated pressure. Denies fever chills nausea vomiting bowel or bladder complaints Past Medical History Renal/ Medical History: Reports: Other - Miscarriage Social History Smoking Status: Never Smoker Electronic Cigarette use?: No Family History Family History: Reviewed & Not Pertinent Parental Family History Reviewed: Yes Children Family History Reviewed: Yes Sibling(s) Family History Reviewed.: Yes Medication/Allergy Home Medications: Vit/Iron Fum/Folic AC [ Tablet] 1 tab PO DAILY 08/28/17 Allergies/Adverse Reactions: No Known Allergies Allergy (Verified 10/10/17 19:56) Review of Systems Constitutional: ABSENT: chills, fever(s), headache(s), weight gain, weight loss Cardiovascular: ABSENT: chest pain, dyspnea on exertion, edema, orthropnea, palpitations Respiratory: ABSENT: cough, hemoptysis Gastrointestinal: PRESENT: as per HPI, abdominal pain Genitourinary: ABSENT: dysuria, hematuria Neurological: ABSENT: abnormal gait, abnormal speech, confusion, dizziness, focal weakness, syncope Psychiatric: ABSENT: anxiety, depression, homidical ideation, suicidal ideation Hematologic/Lymphatic: ABSENT: easy bleeding, easy bruising Physical Exam - Physical Exam Vital Signs: Temp Pulse Resp BP Pulse Ox 98.3 F 72 16 121/68 100 12/03/19 03:00 12/03/19 03:00 12/03/19 03:00 12/03/19 03:00 12/03/19 03:00 Intake & Output 12/02/19 12/03/19 12/04/19 06:59 06:59 06:59 Intake Total 1000 Balance 1000 Weight 104.5 kg General appearance: PRESENT: no acute distress, cooperative - Sleeping quietly when I arrived to see her in the ER bay Respiratory exam: PRESENT: clear to auscultation contreras Cardiovascular exam: PRESENT: RRR, +S1, +S2 GI/Abdominal exam: PRESENT: normal bowel sounds, soft - No tenderness on palpation Extremities exam: PRESENT: full ROM. ABSENT: calf tenderness, clubbing, pedal edema - Obstetrical Exam External Genitalia: normal - No blood on pad Vagina: normal - Trace amount of dark blood in vaginal vault: 1 proctoscopy swab usually saturated Cervix appears closed 1 small clot in upper vaginal vault that was approximately 3 to 4 mm in size, dark red. No active bleeding. No cervical motion tenderness. Uterus palpates to approximately 11 to 12 weeks size Dilation (cm): 0 Tender: No Adhexa: normal Result Laboratory Results: 12/02/19 20:05 12/02/19 20:05 12/02/19 12/02/19 12/02/19 20:05 20:05 20:05 WBC 10.8 H RBC 4.43 Hgb 14.0 Hct 40.9 MCV 93 MCH 31.6 MCHC 34.1 RDW 13.4 Plt Count 260 Seg Neutrophils % 64.7 Sodium 139.4 Potassium 4.4 Chloride 107 Carbon Dioxide 25 Anion Gap 7 BUN 7 Creatinine 0.55 Est GFR ( Amer) > 60 Glucose 97 Calcium 9.7 Total Bilirubin 0.5 AST 20 Alkaline Phosphatase 59 Total Protein 7.5 Albumin 4.3 Blood Type O POSITIVE Antibody Screen NEGATIVE Assessment & Plan - Diagnosis (1) Miscarriage Is this a current diagnosis for this admission?: Yes - Time Critical Time spent with patient: 15-24 minutes Medications reviewed and adjusted accordingly: Yes Anticipated Discharge Disposition: Home, Self Care Anticipated Discharge Timeframe: within 24 hours - 29yo with missed AB at approximately 11 to 13 weeks. This was diagnosed earlier this week at the office and patient is scheduled for D&C next week. However patient reports she was told by Dr. Amador to come to the hospital with any symptoms and patient had cramping this evening with initiation of period type bleeding. ER physician reported that because the patient stated Dr. Amador wanted her to get a rapid test and have the D&C now they did a rapid test on the patient which was negative. -Vital signs in the ER are stable blood pressure is normotensive and heart rate is normal , afebrile -hemoglobin 14, hematocrit 40.9 -WBCs 10.8 - Patient has no active bleeding -At this time patient is stable. Alternative given for discharge home with D&C as previously planned or she can wait and talk to Dr. Amador today about adding the case on as a suction D&C. Patient is in favor of staying for a D&C when able to be done. I will communicate this to Dr. Amador to see if she is able to do this later today. Patient to remain NPO and IVFs: LR at 125 cc/hr Risk benefits and alternatives discussed. Consent signed for suction D&C as well as blood products if needed
[2019-12-03] MEDS ORDERED: DOXYCYCLINE HYCLATE INJ 100 MG VIAL IV ONE (08:55)
[2019-12-03] MEDS ORDERED: DOXYCYCLINE HYCLATE 100 MG in DEXTROSE 5%-WATER 250 ML IV PRN (09:29)
[2019-12-03] MEDS: RINGERS SOLUTION,LACTATED 1,000 ML IV PRN (11:24)
[2019-12-03] MEDS ORDERED: FENTANYL CITRATE INJ/PF 100 MCG/2 ML AMPUL ONE ×2 (15:20→15:40)
[2019-12-03] MEDS ORDERED: FENTANYL CITRATE INJ/PF 100 MCG/2 ML AMPUL IV ONE (15:30)
[2019-12-03 15:35] LABS: CHLAM PCR NOT DETECTED (NOT DETECT)
[2019-12-03] MEDS ORDERED: MIDAZOLAM 2 MG/2 ML INJ ONE (15:40)
[2019-12-03] MEDS ORDERED: PROPOFOL INJ 200 MG/20 ML VIAL IV ONE (15:41)
[2019-12-03] MEDS ORDERED: LIDOCAINE 1%/EPINEPHRINE INJ 20 ML VIAL ONE (16:13)
[2019-12-03] MEDS ORDERED: PROMETHAZINE HCL INJ 25 MG/1 ML VIAL IV PRN ×2 (16:31)
[2019-12-03] MEDS ORDERED: FENTANYL CITRATE INJ/PF 100 MCG/2 ML AMPUL IV PRN ×3 (16:31)
[2019-12-03] MEDS ORDERED: DIPHENHYDRAMINE HCL 50 MG/ML VIAL IV PRN (16:31)
[2019-12-03] MEDS ORDERED: MEPERIDINE HCL/PF INJ 25 MG/1 ML DISP.SYRIN IV PRN (16:31)
[2019-12-03] MEDS ORDERED: METHYLERGONOVINE MALEATE INJ/PF 0.2 MG/1 ML AMPULE ONE (16:32)
[2019-12-03] MEDS ORDERED: MISOPROSTOL 0.2 MG TABLET ONE (16:33)
[2019-12-03] MEDS ORDERED: OXYCODONE-ACETAMINOPHEN 5-325 MG TABLET PO PRN ×2 (16:50)
[2019-12-03] MEDS ORDERED: RINGERS SOLUTION,LACTATED 1,000 ML IV PRN (16:50)
--- NOTE | 2019-12-03 17:01 | Operative Report ---
Operative Report DATE OF SURGERY: 12/03/19 PREOPERATIVE DIAGNOSIS: MAB at 11+3ega POSTOPERATIVE DIAGNOSIS: KERWIN OPERATION: Paracervical Block, Suction Dilation and Curettage SURGEON: JOSE ESTRADA ANESTHESIA: GA TISSUE REMOVED OR ALTERED: products of conception COMPLICATIONS: uterine atony ESTIMATED BLOOD LOSS: 550 INTRAOPERATIVE FINDINGS: large amount of products of conception. mild uterine atony, 0.2mg of methergine given in lower uterine segment and 800mcg cytotec given OH with good improvement of uterine tone. PROCEDURE: Anesthesia: [GUALBERTO Greenberg, Dr. Morse] EBL: 550ml IVF: [400ml] UOP: 100ml Indications: [29yo at 11+3ega with MAB seen in the office this week and diagnosed with MAB and scheduled for D&C on 12/07. However, came in through the ER last evening/early this am with pain and COVID was done and negative. She desires to proceed with Planned Suction D&C. The risks, benefits, alternatives were reviewed and she desires to proceed with planned procedure.] Procedure: The patient was taken to the Operating Room where general anesthesia was obtained without difficulty. She was prepped and draped in the normal sterile fashion in the dorsal lithotomy position. Exam under anesthesia was performed and noted above. A speculum was placed in the vagina. The anterior cervix was grasped with a single-tooth tenaculum and the uterus sounded to [11cm] after paracervical block was performed with 8 mL of 1% lidocaine with epinephrine. The cervix was noted to be closed at the beginning of the procedure. Sequential dilators were then used to dilate the cervix to accommodate the the 8 mm suction curet curved. The 8 mm curved suction curet was gently advanced in the usual fashion and good return of tissue. The suction device was then activated and the curet rotated to clear the uterus of the products of conception. A sharp curettage was then performed. The suction device was then gently reintroduced and activated and the curet rotated to clear the uterus of conception which was loosened with recent sharp curettage. Devyn stones were used to remove a large amount of loosened products of conception. The sharp curettage was then performed again until a gritty texture was noted and the cavity was felt to be empty of further tissue and uterine tone improved. However, methergine 0.2mg given intrauterine into the lower uterine segment and Cytotec given OH. Uterine tone continued to improved and at this time there was minimal bleeding noted from the cervix. All instruments were removed from the patient's cervix and vagina. Silver nitrate was applied to the tenaculum site for hemostasis. Sponge lap needle and instrument counts are correct 2. Doxycycline 100 mg IV was given perioperatively. The patient tolerated the procedure well and was taken to the recovery area awake and in stable condition. The patient was discharged home with
[2019-12-03] MEDS: FENTANYL CITRATE INJ/PF 100 MCG/2 ML AMPUL ONE ×2 (17:17→17:22)
[2019-12-03] MEDS ORDERED: HYDROMORPHONE HCL INJ/PF 2 MG/ML AMPULE IV ONE (22:15)
[2019-12-03] MEDS ORDERED: METHYLERGONOVINE MALEATE 0.2 MG TABLET ONE (23:40)
[2019-12-03] MEDS: METHYLERGONOVINE MALEATE 0.2 MG TABLET PO SCH (23:53)
[2019-12-04] MEDS ORDERED: METHYLERGONOVINE MALEATE 0.2 MG TABLET ONE (05:08)
[2019-12-04] MEDS: RINGERS SOLUTION,LACTATED 1,000 ML IV PRN (05:49)
[2019-12-04] MEDS: METHYLERGONOVINE MALEATE 0.2 MG TABLET PO SCH (05:55)
[2019-12-04 07:37] LABS: ABSOLUTE EOSINOPHILS # (AUTO) 0.2 10^3/uL (0.0-0.6); ABSOLUTE LYMPHOCYTES (AUTO) 2.4 10^3/uL (0.5-4.7); ABSOLUTE MONOCYTES (AUTO) 0.5 10^3/uL (0.1-1.4); BASOPHILS % (AUTO) 0.3 % (0-2); EOSINOPHILS % (AUTO) 2.4 % (0-6); HEMATOCRIT 36.3 % (36.0-47.0); HEMOGLOBIN 12.6 g/dL (12.0-15.5); LYMPHOCYTES % (AUTO) 30.2 % (13-45); MEAN CORPUSCULAR HEMOGLOBIN 31.8 pg (27.0-33.4); MEAN CORPUSCULAR HGB CONC 34.8 g/dL (32.0-36.0); MEAN CORPUSCULAR VOLUME 91 fl (80-97); MONOCYTES % (AUTO) 5.7 % (3-13); PLATELET COUNT 202 10^3/uL (150-450); RED BLOOD COUNT 3.97 10^6/uL (3.72-5.28); RED CELL DISTRIBUTION WIDTH 13.1 % (11.5-14.0); SEGMENTED NEUTROPHILS % (AUTO) 61.4 % (42-78); TOTAL CELLS COUNTED % (AUTO) 100 %; WHITE BLOOD COUNT 8.1 10^3/uL (4.0-10.5)
--- NOTE | 2019-12-04 07:47 | PDOC DISCHARGE SUMMARY ---
Impression - Admit/DC Date/PCP Admission Date/Primary Care Provider: 12/03/19 06:47 ALEJO FLORES PA-C Discharge Date: 12/04/19 - Assessment Summary: Patient was admitted from the ER with known MAB at 11-12 weeks. COVID was negative in ER and she was taken to OR for Suction D&C. Uncomplicated surgery except for EBL 550ml which can be expected for her ega. She has been stable overnight and is doing well. CBC stable. VS stable and afebrile. - Additional Information Resuscitation Status: Full Code Discharge Diet: As Tolerated Discharge Activity: Activity As Tolerated, Pelvic Rest, No tub bath Referrals: ALVIN GALEANO MD [ACTIVE STAFF] - Follow up as needed Prescriptions: Methylergonovine Maleate [Methergine 0.2 mg Tablet] 0.2 mg PO Q6 1 Days #3 tablet Home Medications: Sulfasalazine [Sulfasalazine Dr] 1,500 mg PO DAILY 12/03/19 Methylergonovine Maleate [Methergine 0.2 mg Tablet] 0.2 mg PO Q6 1 Days #3 tablet 12/04/19 Oxycodone HCl/Acetaminophen [Percocet 5-325 mg Tablet] 1 tab PO Q4HP PRN tablet 12/04/19 Oxycodone HCl/Acetaminophen [Percocet 5-325 mg Tablet] 2 tab PO Q4HP PRN tablet 12/04/19 History of Present Illiness History of Present Illness: JOCELYNE PETE is a 29 year old female- with known MAB at 11-12 wks presented through the ER with minimal bleeding. COVID was done and negative. At that time she was place on the OR schedule and Suction D&C was performed. She was monitored overnight and meets criteria for discharge. Will discharge home on methergine po to complete 24 hours. Hospital Course Hospital Course: Patient was admitted from the ER with known MAB at 11-12 weeks. COVID was negative in ER and she was taken to OR for Suction D&C. Uncomplicated surgery except for EBL 550ml which can be expected for her ega. She has been stable overnight and is doing well. CBC stable. VS stable and afebrile. Physical Exam - Physical Exam Vital Signs: Temp Pulse Resp BP Pulse Ox 98.0 F 59 L 18 119/69 99 12/04/19 04:16 12/04/19 04:16 12/04/19 04:16 12/04/19 04:16 12/04/19 04:16 Intake & Output 12/03/19 12/04/19 12/05/19 06:59 06:59 06:59 Intake Total 1000 3000 Output Total 1250 Balance 1000 1750 Weight 104.5 kg 104.2 kg General appearance: PRESENT: no acute distress, well-developed, well-nourished Head exam: PRESENT: atraumatic, normocephalic Respiratory exam: PRESENT: clear to auscultation contreras, symmetrical, unlabored Cardiovascular exam: PRESENT: RRR. ABSENT: diastolic murmur, rubs, systolic murmur Pulses: PRESENT: normal dorsalis pedis pul, +2 pedal pulses bilateral Vascular exam: PRESENT: normal capillary refill Rectal exam: PRESENT: deferred Extremities exam: PRESENT: full ROM. ABSENT: calf tenderness, clubbing, pedal edema Neurological exam: PRESENT: alert, awake, oriented to person, oriented to place, oriented to time, oriented to situation, CN II-XII grossly intact. ABSENT: motor sensory deficit Psychiatric exam: PRESENT: appropriate affect, normal mood. ABSENT: homicidal ideation, suicidal ideation Skin exam: PRESENT: dry, intact, warm. ABSENT: cyanosis, rash - Obstetrical Exam External Genitalia: normal - No blood on pad Vagina: normal - Trace amount of dark blood in vaginal vault: 1 proctoscopy swab usually saturated Cervix appears closed 1 small clot in upper vaginal vault that was approximately 3 to 4 mm in size, dark red. No active bleeding. No cervical motion tenderness. Uterus palpates to approximately 11 to 12 weeks size Adhexa: normal Results Laboratory Results: WBC 8.1 10^3/uL (4.0-10.5) 12/04/19 07:00 RBC 3.97 10^6/uL (3.72-5.28) 12/04/19 07:00 Hgb 12.6 g/dL (12.0-15.5) 12/04/19 07:00 Hct 36.3 % (36.0-47.0) 12/04/19 07:00 MCV 91 fl (80-97) 12/04/19 07:00 MCH 31.8 pg (27.0-33.4) 12/04/19 07:00 MCHC 34.8 g/dL (32.0-36.0) 12/04/19 07:00 RDW 13.1 % (11.5-14.0) 12/04/19 07:00 Plt Count 202 10^3/uL (150-450) 12/04/19 07:00 Lymph % (Auto) 30.2 % (13-45) 12/04/19 07:00 Villalba % (Auto) 5.7 % (3-13) 12/04/19 07:00 Eos % (Auto) 2.4 % (0-6) 12/04/19 07:00 Baso % (Auto) 0.3 % (0-2) 12/04/19 07:00 Absolute Neuts (auto) 5.0 10^3/uL (1.7-8.2) 12/04/19 07:00 Absolute Lymphs (auto) 2.4 10^3/uL (0.5-4.7) 12/04/19 07:00 Absolute Monos (auto) 0.5 10^3/uL (0.1-1.4) 12/04/19 07:00 Absolute Eos (auto) 0.2 10^3/uL (0.0-0.6) 12/04/19 07:00 Absolute Basos (auto) 0.0 10^3/uL (0.0-0.2) 12/04/19 07:00 Seg Neutrophils % 61.4 % (42-78) 12/04/19 07:00 Sodium 139.4 mmol/L (137-145) 12/02/19 20:05 Potassium 4.4 mmol/L (3.6-5.0) 12/02/19 20:05 Chloride 107 mmol/L (98-107) 12/02/19 20:05 Carbon Dioxide 25 mmol/L (22-30) 12/02/19 20:05 Anion Gap 7 (5-19) 12/02/19 20:05 BUN 7 mg/dL (7-20) 12/02/19 20:05 Creatinine 0.55 mg/dL (0.52-1.25) 12/02/19 20:05 Est GFR ( Amer) > 60 (>60) 09/03/20 20:05 Est GFR (MDRD) Non-Af > 60 (>60) 12/02/19 20:05 Glucose 97 mg/dL (75-110) 12/02/19 20:05 Calcium 9.7 mg/dL (8.4-10.2) 12/02/19 20:05 Total Bilirubin 0.5 mg/dL (0.2-1.3) 12/02/19 20:05 Direct Bilirubin 0.3 mg/dL (0.0-0.4) 12/02/19 20:05 Neonat Total Bilirubin Not Reportable 12/02/19 20:05 Neonat Direct Bilirubin Not Reportable 12/02/19 20:05 Neonat Indirect Bili Not Reportable 12/02/19 20:05 AST 20 U/L (14-36) 12/02/19 20:05 ALT 16 U/L (<35) 12/02/19 20:05 Alkaline Phosphatase 59 U/L (38-126) 12/02/19 20:05 Total Protein 7.5 g/dL (6.3-8.2) 12/02/19 20:05 Albumin 4.3 g/dL (3.5-5.0) 12/02/19 20:05 Beta HCG, Quant 2081.40 mIU/mL (0.0-6.15) H 12/03/19 14:19 Total Beta HCG POSITIVE (NEGATIVE) 12/03/19 14:19 Chlamydia DNA (PCR) NOT DETECTED (NOT DETECT) 12/03/19 12:40 N.gonorrhoeae DNA (PCR) NOT DETECTED (NOT DETECT) 12/03/19 12:40 SARS-CoV-2 (PCR) NEGATIVE (NEGATIVE) 12/02/19 21:34 Blood Type O POSITIVE 12/02/19 20:05 Antibody Screen NEGATIVE 12/02/19 20:05 Plan Plan of Treatment: Discharge to home Stroke Is this a Stroke Patient?: No Acute Heart Failure - Is this a Heart Failure Patient?: No
[2019-12-04 08:54] VITALS: BP 111/65
== END 2019-12-04 09:45 | disposition home or self-care (01) ==
LOC: ER 18:35 → EH 12-03 06:47 → 2N 12-03 07:55
PROVIDERS: ADMIT Obstetrics & Gynecology; ATTEND Obstetrics & Gynecology
DX: O02.1 Missed abortion (principal); O62.2 Other uterine inertia; Z03.818 Encounter for observation for suspected exposure to other biological agents ruled out; Z67.90 Unspecified blood type, Rh positive
CPT/HCPCS: 99285; 96361; 96374; 96375; 86900; 86901; 36415 ×3; 86850; 84702 ×2; 85025 ×2; 80053; 87491; 87591; 88305 ×2; 99140; 01965; 59820; G0378 ×2; U0003; J2250; J3010; J3490 ×3; J2210; J2270; J1170; J2405; J7030; J7120 ×2; J2704; C9803; 1965; 87635

== ENCOUNTER 2020-03-15 16:17 | Emergency (ER) | payer BC, MEDICAID ==
[2020-03-15] MEDS ORDERED: NORMAL SALINE 500 ML IV ONE (16:32)
[2020-03-15] MEDS ORDERED: ONDANSETRON HCL INJ/PF 4 MG/2 ML SDV IV ONE ×2 (16:35→20:00)
--- NOTE | 2020-03-15 16:37 | ER Document Report ---
ED Medical Screen (RME) - General Chief Complaint: Vag Bleeding, +preg <12wks Stated Complaint: VAGINAL BLEEDING Time Seen by Provider: 03/15/20 16:31 Primary Care Provider: ALEJO FLORES PA-C [Primary Care Provider] - Follow up as needed TRAVEL OUTSIDE OF THE [place] IN LAST 30 DAYS: No - HPI Notes: 03/15/20 16:36 29-year-old female presents to ED for evaluation of possible miscarriage. Reports she started bleeding roughly half an hour prior to arrival and is passing large amounts of blood. Patient reports she has 2 prior miscarriages and one living child. Notes that she should be 7 weeks based on her follow-up with [employer] [facility] Dr. Jimenez. Reports she is cramping and is very nauseous. Denies fevers or chills. Denies chest pain or shortness of breath. Endorses no other complaints. - Related Data Allergies/Adverse Reactions: No Known Allergies Allergy (Verified 03/15/20 16:31) Past Medical History Psychiatric Medical History: Denies: Hx Depression - Immunizations Hx Diphtheria, Pertussis, Tetanus Vaccination: - unknown Physical Exam - Vital signs Vitals: General: No acute distress. Alert and oriented x3. Sitting comfortably in a stretcher. Skin: Intact without any jaundice, pallor, or erythema. Warm and dry. Heart: Regular rate and rhythm. S1,S2. No murmurs, rubs, or gallops. Lungs: Clear to ausculation bilaterally. No wheezes, rhonchi, rales. Equal chest expansion. No retractions. Abdomen: Soft, pain with deep palpation throughout abdomen, nondistended. Positive bowel sounds in all 4 quadrants. No hepatosplenomegaly. No masses. No CVA tenderness bilaterally. Neuro: GCS 15. Moving all extremities without discomfort. Extremities: No calf tenderness or edema. No cyanosis or clubbing. Radial and pedal pulses 2+ bilaterally. Brisk capillary refill. Psych: Mood and affect appropriate. Doctor's Discharge - Discharge Referrals: ALEJO FLORES PA-C [Primary Care Provider] - Follow up as needed
[2020-03-15 16:57] LABS: ABSOLUTE EOSINOPHILS # (AUTO) 0.2 10^3/uL (0.0-0.6); ABSOLUTE LYMPHOCYTES (AUTO) 3.4 10^3/uL (0.5-4.7); ABSOLUTE MONOCYTES (AUTO) 0.5 10^3/uL (0.1-1.4); ABSOLUTE NEUT (AUTO) 6.2 10^3/uL (1.7-8.2); BASOPHILS % (AUTO) 0.4 % (0-2); EOSINOPHILS % (AUTO) 2.4 % (0-6); HEMATOCRIT 38.8 % (36.0-47.0); HEMOGLOBIN 13.1 g/dL (12.0-15.5); LYMPHOCYTES % (AUTO) 32.3 % (13-45); MEAN CORPUSCULAR HEMOGLOBIN 29.9 pg (27.0-33.4); MEAN CORPUSCULAR HGB CONC 33.9 g/dL (32.0-36.0); MEAN CORPUSCULAR VOLUME 88 fl (80-97); MONOCYTES % (AUTO) 5.1 % (3-13); PLATELET COUNT 294 10^3/uL (150-450); RED BLOOD COUNT 4.39 10^6/uL (3.72-5.28); RED CELL DISTRIBUTION WIDTH 13.8 % (11.5-14.0); SEGMENTED NEUTROPHILS % (AUTO) 59.8 % (42-78); TOTAL CELLS COUNTED % (AUTO) 100 %; WHITE BLOOD COUNT 10.4 10^3/uL (4.0-10.5)
[2020-03-15 17:09] LABS: APPEARANCE,URINE CLEAR; BILIRUBIN,URINE NEGATIVE (NEGATIVE); COLOR,URINE STRAW; GLUCOSE, URINE NEGATIVE (NEGATIVE); KETONES,URINE NEGATIVE (NEGATIVE); LEUKOCYTE ESTERASE,URINE NEGATIVE (NEGATIVE); NITRITE,URINE NEGATIVE (NEGATIVE); PROTEIN,URINE NEGATIVE (NEGATIVE); URINE SPECIFIC GRAVITY 1.013; UROBILINOGEN,URINE NEGATIVE mg/dL (<2.0)
[2020-03-15 17:20] LABS: ALBUMIN 4.2 g/dL (3.5-5.0); ALKALINE PHOSPHATASE 79 U/L (38-126); ANION GAP 9 (5-19); ASPARTATE AMINO TRANSFERASE 24 U/L (14-36); BILIRUBIN,DIRECT 0.1 mg/dL (0.0-0.4); BILIRUBIN,TOTAL 0.4 mg/dL (0.2-1.3); BLOOD UREA NITROGEN 13 mg/dL (7-20); CALCIUM 9.7 mg/dL (8.4-10.2); CARBON DIOXIDE 27 mmol/L (22-30); CHLORIDE 102 mmol/L (98-107); GLUCOSE 101 mg/dL (75-110); POTASSIUM 4.1 mmol/L (3.6-5.0); TOTAL PROTEIN 7.7 g/dL (6.3-8.2)
--- NOTE | 2020-03-15 18:09 | RADIOLOGY REPORT (SQ) ---
EXAM DESCRIPTION: U/S OB TRANSVAG W/DOPPLER IMAGES COMPLETED DATE/TIME: 03/15/2020 5:47 pm REASON FOR STUDY: miscarriage COMPARISON: None. TECHNIQUE: Transvaginal static and realtime grayscale images acquired of the pelvis. Additional eula cted spectral and color Doppler images recorded. All images stored on PACs. bHCG: Pending. CLINICAL DATES: 6 weeks 6 days LIMITATIONS: None. FINDINGS: FETUS: Single Living intrauterine . ULTRASOUND EGA: 6 weeks 6 days ULTRASOUND FRANKIE: Ease 11/02/2020 EFW: Not applicable less than 20 weeks. CRL: 0.9 cm FHR: 140 beats per minute. SURVEY: Too early to assess. AMNIOTIC FLUID: Adequate amount. PLACENTA: Not yet developed due to early gestation. SUBCHORIONIC BLEED: 3.4 x 3.1 x 2.6 cm SIZE OF BLEED: Yes UTERUS: No masses. No anomalies. CERVICAL LENGTH: 3.2 cm is RIGHT ADNEXA: Normal ovary with normal vascular flow. No adnexal free fluid. 1.8 cm cyst JUAN LEFT ADNEXA: Normal ovary with normal vascular flow. No adnexal free fluid. No adnexal masses. FREE FLUID: None. OTHER: No other significant finding. IMPRESSION: LIVING INTRAUTERINE . EGA 6 weeks 6 days Subchorionic hemorrhage. Trimester of : First trimester - 0 to 13 weeks. TECHNICAL DOCUMENTATION: JOB ID: [id number] 2010 [employer]- All Rights Reserved rev-08/15 Reading location - IP/workstation name: [email or web address]
[2020-03-15 19:21] LABS: ABSOLUTE BASOPHILS # (AUTO) 0.1 10^3/uL (0.0-0.2); ABSOLUTE EOSINOPHILS # (AUTO) 0.2 10^3/uL (0.0-0.6); ABSOLUTE MONOCYTES (AUTO) 0.8 10^3/uL (0.1-1.4); ABSOLUTE NEUT (AUTO) 6.7 10^3/uL (1.7-8.2); BASOPHILS % (AUTO) 0.4 % (0-2); EOSINOPHILS % (AUTO) 1.9 % (0-6); HEMATOCRIT 37.6 % (36.0-47.0); LYMPHOCYTES % (AUTO) 33.8 % (13-45); MEAN CORPUSCULAR HGB CONC 34.5 g/dL (32.0-36.0); MEAN CORPUSCULAR VOLUME 87 fl (80-97); MONOCYTES % (AUTO) 6.6 % (3-13); PLATELET COUNT 281 10^3/uL (150-450); RED BLOOD COUNT 4.33 10^6/uL (3.72-5.28); RED CELL DISTRIBUTION WIDTH 13.9 % (11.5-14.0); SEGMENTED NEUTROPHILS % (AUTO) 57.3 % (42-78); TOTAL CELLS COUNTED % (AUTO) 100 %; WHITE BLOOD COUNT 11.7 10^3/uL (4.0-10.5)
--- NOTE | 2020-03-15 20:45 | ER Document Report ---
ED General - General Chief Complaint: Vag Bleeding, +preg <12wks Stated Complaint: VAGINAL BLEEDING Time Seen by Provider: 03/15/20 16:31 Primary Care Provider: ALEJO FLORES PA-C [Primary Care Provider] - Follow up as needed TRAVEL OUTSIDE OF THE [place] IN LAST 30 DAYS: No - HPI Notes: Patient is a G4, P1 female at approximately 7 weeks gestation who presents emergency department for evaluation of vaginal bleeding. She has had some large bright red clots passed since earlier this afternoon. She is not really having any pain. She was on vaginal progesteron, as started by her primary RAILCAR SWITCHER, as she has had 2 miscarriages in the past. She denies any chest pain or dizziness. No fevers or chills. No nausea or vomiting. She is eating and drinking normally. - Related Data Allergies/Adverse Reactions: No Known Allergies Allergy (Verified 03/15/20 16:31) Home Medications: Vaginal progesterone, vitamins Past Medical History - General Information source: Patient - Social History Smoking Status: Never Smoker Family History: Reviewed & Not Pertinent Psychiatric Medical History: Denies: Hx Depression Past Surgical History: Reports: Hx Gynecologic Surgery - D&C - Immunizations Hx Diphtheria, Pertussis, Tetanus Vaccination: - unknown Review of Systems - Review of Systems Constitutional: No symptoms reported EENT: No symptoms reported Cardiovascular: No symptoms reported Respiratory: No symptoms reported Gastrointestinal: No symptoms reported Genitourinary: No symptoms reported Female Genitourinary: See HPI Musculoskeletal: No symptoms reported Skin: No symptoms reported Neurological/Psychological: No symptoms reported Physical Exam - Vital signs Vitals: Temp 97.8 F 03/15/20 16:34 - Notes Notes: Vital signs reviewed, please refer to chart. Head is normocephalic, atraumatic. Pupils equal round, reactive to light. Neck is supple without meningismus. Heart is regular rate and rhythm. Lungs are clear to auscultation bilaterally. Abdomen is soft, nontender, normoactive bowel sounds throughout. Extremities without cyanosis, clubbing. Posterior calves are nontender. Peripheral pulses are equal. Skin is warm and dry. Patient is awake, alert, neurological exam is nonfocal. Course - Re-evaluation Re-evalutation: 03/15/20 20:42 Patient presents emergency department for evaluation. She is a G4, P1 who is having vaginal bleeding. Laboratory investigations were ordered as through triage. The patient is Rh+, no RhoGam indicated. Her hemoglobin remained stab le despite her reports of significant bleeding. Her vital signs remained stable. Her quantitative beta-hCG was 32,190. I explained to the patient that she needs to follow pelvic rest instructions, but she needs repeat ultrasound and repeat beta-hCG on Friday by her RAILCAR SWITCHER to evaluate what happening with this . She voiced understanding. Otherwise, she is told that if she continues with heavy bleeding and develops chest pain, dizziness, or she develops any new or concerning symptoms, she should return immediately to the ER for evaluation. She voiced understanding and was discharged. - Vital Signs Vital signs: Temp Pulse Resp BP Pulse Ox 97.8 F 83 18 145/83 H 99 03/15/20 16:38 03/15/20 16:38 03/15/20 16:38 03/15/20 16:38 03/15/20 16:38 - Laboratory Results Result Diagrams: 03/15/20 19:06 03/15/20 16:45 Laboratory Results Interpreted: 03/15/20 03/15/20 03/15/20 16:45 16:45 19:06 WBC 11.7 H Beta HCG, Quant 42108.00 H Urine Blood MODERATE H Critical Laboratory Results Reviewed: No Critical Results - Radiology Results Radiology Results Interpreted: 03/15/20 20:42 Transvaginal US 03/15/20 16:32 IMPRESSION: LIVING INTRAUTERINE . EGA 6 weeks 6 days Subchorionic hemorrhage. Trimester of : First trimester - 0 to 13 weeks. Critical Radiology Results Reviewed: No Critical Results Discharge - Discharge Clinical Impression: Vaginal bleeding in Subchorionic hemorrhage in first trimester Qualifiers: Fetus number: single or unspecified fetus Qualified Code(s): O41.8X10 - Other specified disorders of amniotic fluid and membranes, first trimester, not applicable or unspecified; O46.8X1 - Other antepartum hemorrhage, first trimester Condition: Stable Disposition: HOME, SELF-CARE Instructions: Bleeding During Early ([facility]) Additional Instructions: On ultrasound today you had a subchorionic hemorrhage, and a fetus that measures at 6 weeks and 6 days with a heart rate of 140. Your quantitative beta-hCG was 32,190. This and a repeat ultrasound should be performed in 48 hours by your RAILCAR SWITCHER to assess progress. Please call Dr. Jimenez first thing tomorrow morning to be assessed. Follow pelvic rest instructions as discussed. If your bleeding worsens, you develop chest pain, dizziness, difficulty breathing, or any other new or concerning symptoms, please return immediately to the emergency dep artment for reevaluation. Referrals: ALEJO FLORES PA-C [Primary Care Provider] - Follow up as needed
[2020-03-15 21:10] VITALS: BP 137/76
== END 2020-03-15 21:04 | disposition home or self-care (01) ==
LOC: ER 16:17
DX: O20.8 Other hemorrhage in early pregnancy (principal); Z67.90 Unspecified blood type, Rh positive; Z79.899 Other long term (current) drug therapy; Z87.59 Personal history of other complications of pregnancy, childbirth and the puerperium; Z3A.00 Weeks of gestation of pregnancy not specified
CPT/HCPCS: 99285; 96361; 96374; 86900; 86901; 36415; 84702; 83690; 85025; 80053; 81001; 76817; 93976; J2405; J7040

== ENCOUNTER 2020-04-09 09:49 | Emergency (ER) | payer BC, MEDICAID ==
--- NOTE | 2020-04-09 10:26 | ER Document Report ---
ED Medical Screen (RME) - General Chief Complaint: Vag Bleeding, +preg <12wks Stated Complaint: VAGINAL BLEEDING 11 WKS PREG Time Seen by Provider: 04/09/20 10:23 Primary Care Provider: ALEJO FLORES PA-C [Primary Care Provider] - Follow up as needed Notes: HPI: 29-year-old female who is 11 weeks presenting for continued vaginal bleeding. Patient follows with women's health PALLIATIVE CARE NURSE PRACTITIONER. Patient was last seen 2 to 3 weeks ago. Had an ultrasound 2 weeks ago. Had a subchorionic bleed at that time. Has noticed increased bleeding and clotting over the last several days now is having lightheadedness with position change or walking. No shortness of breath. PHYSICAL EXAMINATION: exam deferred in triage. Vital signs appear normal at rest. Does not become dyspneic with speaking I have greeted and performed a rapid initial assessment of this patient. A comprehensive ED assessment and evaluation of the patient, analysis of test results and completion of medical decision making process will be conducted by an additional ED providers. Please note that clinical decision making for this patient was made during the 2019 pandemic of novel coronavirus which caused a significant strain on the healthcare system including at this particular facility. Criteria for admission discharge and level of care decisions as well as treatment decisions have necessarily changed TRAVEL OUTSIDE OF THE [place] IN LAST 30 DAYS: No - Related Data Allergies/Adverse Reactions: No Known Allergies Allergy (Verified 04/09/20 10:22) Past Medical History Psychiatric Medical History: Denies: Hx Depression Past Surgical History: Reports: Hx Gynecologic Surgery - D&C - Immunizations Hx Diphtheria, Pertussis, Tetanus Vaccination: - unknown Physical Exam - Vital signs Vitals: Temp Pulse Resp BP Pulse Ox 98.2 F 85 18 125/75 100 04/09/20 09:58 04/09/20 09:58 04/09/20 09:58 04/09/20 09:58 04/09/20 09:58 Course - Vital Signs Vital signs: Temp Pulse Resp BP Pulse Ox 98.2 F 85 18 125/75 100 04/09/20 09:58 04/09/20 09:58 04/09/20 09:58 04/09/20 09:58 04/09/20 09:58 Doctor's Discharge - Discharge Referrals: ALEJO FLORES PA-C [Primary Care Provider] - Follow up as needed
--- NOTE | 2020-04-09 11:15 | RADIOLOGY REPORT (SQ) ---
EXAM DESCRIPTION: U/S OB TRANSVAG W/DOPPLER IMAGES COMPLETED DATE/TIME: 04/09/2020 10:47 am REASON FOR STUDY: vag bleed COMPARISON: 03/15/2020 TECHNIQUE: Transabdominal static and realtime grayscale images acquired of the pelvis. Additional se lected spectral and color Doppler images recorded. All images stored on PACs. bHCG: Not applicable. CLINICAL DATES: 11/02/2020 LIMITATIONS: None. FINDINGS: FETUS: Single Living intrauterine . ULTRASOUND EGA: 10 weeks 5 days ULTRASOUND FRANKIE: 10/31/2020 EFW: Not applicable less than 20 weeks. CRL: 3.74 cm FHR: JUAN 162 beats per minute. SURVEY: Too early to assess. AMNIOTIC FLUID: Adequate amount. PLACENTA: Not yet developed due to early gestation. SUBCHORIONIC BLEED: Yes currently measures 7 cm. Elongated And thinner than on the previous study. SIZE OF BLEED: 7 x 2 cm. UTERUS: No masses. No anomalies. CERVICAL LENGTH: 3 cm Closed. RIGHT ADNEXA: Normal ovary with normal vascular flow. No adnexal free fluid. No adnexal masses. LEFT ADNEXA: Normal ovary with normal vascular flow. No adnexal free fluid. No adnexal masses. FREE FLUID: None. OTHER: No other significant finding. IMPRESSION: LIVING INTRAUTERINE . EGA 10 weeks 5 days Persistent subchorionic hemorrhage which is more elongated than on the previous study. Trimester of : First trimester - 0 to 13 weeks. TECHNICAL DOCUMENTATION: JOB ID: [id number] 2010 [employer]- All Rights Reserved rev Reading location - IP/workstation name: [email or web address]
[2020-04-09 11:17] LABS: ABSOLUTE EOSINOPHILS # (AUTO) 0.2 10^3/uL (0.0-0.6); ABSOLUTE LYMPHOCYTES (AUTO) 2.6 10^3/uL (0.5-4.7); ABSOLUTE MONOCYTES (AUTO) 0.6 10^3/uL (0.1-1.4); ABSOLUTE NEUT (AUTO) 6.6 10^3/uL (1.7-8.2); BASOPHILS % (AUTO) 0.4 % (0-2); EOSINOPHILS % (AUTO) 1.5 % (0-6); HEMATOCRIT 38.8 % (36.0-47.0); HEMOGLOBIN 13.3 g/dL (12.0-15.5); LYMPHOCYTES % (AUTO) 26.1 % (13-45); MEAN CORPUSCULAR HGB CONC 34.2 g/dL (32.0-36.0); MEAN CORPUSCULAR VOLUME 88 fl (80-97); MONOCYTES % (AUTO) 5.7 % (3-13); PLATELET COUNT 285 10^3/uL (150-450); RED BLOOD COUNT 4.42 10^6/uL (3.72-5.28); SEGMENTED NEUTROPHILS % (AUTO) 66.3 % (42-78); TOTAL CELLS COUNTED % (AUTO) 100 %; WHITE BLOOD COUNT 9.9 10^3/uL (4.0-10.5)
[2020-04-09 11:30] LABS: APPEARANCE,URINE SLIGHTLY-CLOUDY; BILIRUBIN,URINE NEGATIVE (NEGATIVE); COLOR,URINE YELLOW; GLUCOSE, URINE NEGATIVE (NEGATIVE); KETONES,URINE NEGATIVE (NEGATIVE); LEUKOCYTE ESTERASE,URINE MODERATE (NEGATIVE); NITRITE,URINE NEGATIVE (NEGATIVE); PROTEIN,URINE NEGATIVE (NEGATIVE); URINE SPECIFIC GRAVITY 1.021; UROBILINOGEN,URINE NEGATIVE mg/dL (<2.0)
[2020-04-09 11:34] LABS: ALBUMIN 4.3 g/dL (3.5-5.0); ALKALINE PHOSPHATASE 77 U/L (38-126); ANION GAP 10 (5-19); ASPARTATE AMINO TRANSFERASE 25 U/L (14-36); BILIRUBIN,DIRECT 0.2 mg/dL (0.0-0.4); BILIRUBIN,TOTAL 0.3 mg/dL (0.2-1.3); BLOOD UREA NITROGEN 8 mg/dL (7-20); CALCIUM 9.6 mg/dL (8.4-10.2); CARBON DIOXIDE 23 mmol/L (22-30); CHLORIDE 106 mmol/L (98-107); GLUCOSE 85 mg/dL (75-110); POTASSIUM 4.1 mmol/L (3.6-5.0)
--- NOTE | 2020-04-09 11:56 | ER Document Report ---
Entered by FRANKO BANDA SCRIBE 04/09/20 1030 Acting as scribe for:MICHELLE TALLEY MD ED GI/ - General Chief Complaint: Vag Bleeding, +preg <12wks Stated Complaint: VAGINAL BLEEDING 11 WKS PREG Time Seen by Provider: 04/09/20 10:23 Primary Care Provider: ALEJO FLORES PA-C [Primary Care Provider] - Follow up as needed Mode of Arrival: Ambulatory Information source: Patient Notes: This 29 year old female patient who is G4, P1, currently x11 weeks gestation presents to the ED today with complaints of heavy vaginal bleeding with clots that started this morning. Patient reports associated lightheadedness and nausea. She states that she was seen here on 03/15 and had an ultrasound that showed a subchorionic hemorrhage. She states that she has been spotting since then, but she has been "bleeding persistently" in the last x2 weeks. She is O positive. Denies abdominal pain. Her QUANTITATIVE EQUITY HEAD is Dr. Jimenez with [facility]. She is on progesterone. Denies recent sexual intercourse. Denies any known COVID exposure. Patient discloses that she has had x2 miscarriages, last one was in 11/2019. Per [facility] records, patient had a D&C on 12/03/2019. TRAVEL OUTSIDE OF THE [place] IN LAST 30 DAYS: No - Related Data Allergies/Adverse Reactions: No Known Allergies Allergy (Verified 04/09/20 10:22) Home Medications: progesterone, PNV Past Medical History - General Information source: Patient, [facility] Records - Social History Smoking Status: Former Smoker Cigarette use (# per day): No Chew tobacco use (# tins/day): No Smoking Education Provided: No Frequency of alcohol use: None Drug Abuse: None Lives with: Family Family History: Reviewed & Not Pertinent Patient has homicidal ideation: No Past Surgical History: Reports: Hx Dilation and Curettage - 12/03/19 - Immunizations Hx Diphtheria, Pertussis, Tetanus Vaccination: - unknown Review of Systems - Review of Systems Constitutional: No symptoms reported EENT: No symptoms reported Cardiovascular: See HPI, Lightheaded Respiratory: No symptoms reported Gastrointestinal: See HPI, Nausea Genitourinary: No symptoms reported Female Genitourinary: See HPI, , Vaginal bleeding Musculoskeletal: No symptoms reported Skin: No symptoms reported Hematologic/Lymphatic: No symptoms reported Neurological/Psychological: No symptoms reported -: Yes All other systems reviewed and negative Physical Exam - Vital signs Vitals: Temp Pulse Resp BP Pulse Ox 98.2 F 85 18 125/75 100 04/09/20 09:58 04/09/20 09:58 04/09/20 09:58 04/09/20 09:58 04/09/20 09:58 Interpretation: Normal - General General appearance: Appears well, Alert In distress: None - HEENT Head: Normocephalic, Atraumatic Eyes: Normal. No: Pale conjunctiva Extraocular movements intact: Yes Pupils: PERRL Neck: Normal, Supple - Respiratory Respiratory status: No respiratory distress Chest status: Nontender Breath sounds: Normal Chest palpation: Normal - Cardiovascular Rhythm: Regular Heart sounds: Normal auscultation Murmur: No Normal capillary refill: Yes - < 2 seconds - Abdominal Inspection: Normal Distension: No distension Bowel sounds: Normal Tenderness: Nontender - Abdomen soft Organomegaly: No organomegaly - Back Back: Normal, Nontender - Extremities General upper extremity: Normal inspection General lower extremity: Normal inspection. No: Edema - Neurological Neuro grossly intact: Yes Cognition: Normal Orientation: AAOx4 Kj Coma Scale Eye Opening: Spontaneous [place] Coma Scale Verbal: Oriented [place] Coma Scale Motor: Obeys Commands [place] Coma Scale Total: 15 Speech: Normal Motor strength normal: LUE, RUE, LLE, RLE Sensory: Normal - Psychological Associated symptoms: Normal affect, Normal mood - Skin Skin Temperature: Warm Skin Moisture: Dry Skin Color: Normal, [place] Course - Re-evaluation Re-evalutation: 04/09/20 11:46 Patient resting comfortably not showing any signs of pain. There has been no report of any worsening bleeding. 04/09/20 11:[address] Chiquis Palomo, who is economic development director swing ride operator today and she reports that patient can be discharged home with modified bedrest and certainly absolute pelvic rest no sexual or anything in the vagina. Patient should follow-up with her gynecology service within the next week most likely she is about due to have another pelvic ultrasound at 12 weeks. - Vital Signs Vital signs: Temp Pulse Resp BP Pulse Ox 98.2 F 85 18 125/75 100 04/09/20 09:58 04/09/20 09:58 04/09/20 09:58 04/09/20 09:58 04/09/20 09:58 04/09/20 11:46 Vital signs stable pulse is 85 afebrile hemodynamically stable. - Laboratory Results Result Diagrams: 04/09/20 10:45 04/09/20 10:45 Laboratory Results Interpreted: 04/09/20 10:45 Urine Blood SMALL H Ur Leukocyte Esterase MODERATE H Urine Ascorbic Acid 40 H Labs- Entire Visit 04/09/20 04/09/20 10:45 10:45 WBC 9.9 RBC 4.42 Hgb 13.3 Hct 38.8 MCV 88 MCH 30.0 MCHC 34.2 RDW 14.0 Plt Count 285 Lymph % (Auto) 26.1 [place] % (Auto) 5.7 Eos % (Auto) 1.5 Baso % (Auto) 0.4 Absolute Neuts (auto) 6.6 Absolute Lymphs (auto) 2.6 Absolute Monos (auto) 0.6 Absolute Eos (auto) 0.2 Absolute Basos (auto) 0.0 Seg Neutrophils % 66.3 Urine Color YELLOW Urine Appearance SLIGHTLY-CLOUDY Urine pH 6.0 Ur Specific [place] 1.021 Urine Protein NEGATIVE Urine Glucose (UA) NEGATIVE Urine Ketones NEGATIVE Urine Blood SMALL H Urine Nitrite NEGATIVE Urine Bilirubin NEGATIVE Urine Urobilinogen NEGATIVE Ur Leukocyte Esterase MODERATE H Urine WBC (Auto) 21 Urine RBC (Auto) 8 Urine Bacteria (Auto) TRACE Squamous Epi Cells Auto 2 Urine Mucus (Auto) RARE Urine Ascorbic Acid 40 H Patient's labs do not show any critical lab values. Patient's urine is cloudy with moderate leukocyte esterase I will send a urine culture to lab. Patient is currently having threatened miscarriage with vaginal bleeding in urine certainly could be contaminated at this time. Critical Laboratory Results Reviewed: No Critical Results - Radiology Results Radiology Results Interpreted: 04/09/20 11:33 Transvaginal US 04/09/20 10:24 IMPRESSION: LIVING INTRAUTERINE . EGA 10 weeks 5 days Persistent subchorionic hemorrhage which is more elongated than on the previous study. Trimester of : First trimester - 0 to 13 weeks. Critical Radiology Results Reviewed: Yes Attending or Supervising Physician who Reviewed Radiology: MICHELLE TALLEY - Patient has subchorionic hemorrhage that is persistent and is more elongated than on previous study. - Consults Dr. Palomo, QUANTITATIVE EQUITY HEAD Time consulted: 11:32 Discharge - Discharge Clinical Impression: Vaginal bleeding during , Threatened miscarriage, Subchorionic hemorrhage in first trimester Condition: Stable Disposition: HOME, SELF-CARE Instructions: Threatened Miscarriage ([facility]) Additional Instructions: Miscarriage You have had a miscarriage (medically called a "spontaneous "). The miscarriage occurred because the fetus did not develop normally. There is nothing you did to cause it, and nothing you could have done to prevent it. About one in four ends in miscarriage. You should rest in bed for two or three days. As there is some risk of infection of the uterus, you should not have intercourse for one week (or until okayed by your physician). You might not have a period for six to eight weeks. You should not become again for at least three months -- the uterus requires time to get back to normal. Call the doctor or return for re-examination if there is heavy or persistent vaginal bleeding, fever, foul discharge, continued cramping pains, or abdominal pain. You have been recommended that you have a pelvic rest which means no sexual intercourse and also modified bedrest. Modified bedrest means that you not to lift push pull heavy objects as well as limit exertional activity. Your weight limit is 10 pounds in terms of lifting. No prolonged standing and no jumping or dancing or any other exertional activities.. I have written you an excuse from work until April 18. I recommend you follow-up with your primary care OB swing ride operator for further instructions Forms: Return to Work Referrals: ALEJO FLORES PA-C [Primary Care Provider] - Follow up as needed JUSTYNA JIMENEZ MD [ACTIVE STAFF] - Follow up in 1 week I personally performed the services described in the documentation, reviewed and edited the documentation which was dictated to the scribe in my presence, and it accurately records my words and actions.
[2020-04-09 12:18] VITALS: BP 130/77
== END 2020-04-09 12:19 | disposition home or self-care (01) ==
LOC: ER 09:49
DX: O20.0 Threatened abortion (principal); O26.891 Other specified pregnancy related conditions, first trimester; R42 Dizziness and giddiness; R11.0 Nausea; Z79.899 Other long term (current) drug therapy; Z87.59 Personal history of other complications of pregnancy, childbirth and the puerperium; Z87.891 Personal history of nicotine dependence; Z3A.11 11 weeks gestation of pregnancy
CPT/HCPCS: 36415; 76817; 80053; 81001; 84702; 85025; 86850; 86900; 86901; 93976; 99284